=== PATIENT | male | born 1935 | race Hispanic/Latino ===

== ENCOUNTER 2021-05-05 06:45 | Inpatient (IN) | payer MEDICARE ==
--- NOTE | 2021-05-05 07:53 | Emergency Department Report ---
ED General Adult HPI - General Chief complaint: Weakness Stated complaint: I am fine PUI?: No Time Seen by Provider: 05/05/21 07:36 Source: patient, family, EMS (Verbal report received from emergency medical services. EMS documentation not available at time of chart dictation ), RN notes reviewed Mode of arrival: Stretcher Limitations: Altered Mental Status, Physical Limitation - History of Present Illness Initial comments: The patient was evaluated in the emergency department for symptoms described in the history of present illness. He/she was evaluated in the context of the global COVID-19 pandemic, which necessitated consideration that the patient might be at risk for infection with the virus that causes COVID-19. Institutional protocols and algorithms that pertain to the evaluation of patients at risk for COVID-19 are in a state of rapid change based on information released by regulatory bodies including the CDC and federal and state organizations. These policies and algorithms were followed during the patient's care in the emergency department. Please note that these policies, procedures and recommendations changed on a rapid basis. Primary CARE doctor: Dr. Sajan Grey Hematology oncology: Dr. Michael Aguiar Past medical history: DO NOT RESUSCITATE, DO NOT INTUBATE status, biliary/bile duct cancer, status post biliary drain placed at [facility], scheduled to have port placed for chemotherapy tomorrow, glaucoma, hypertension, hypothyroidism, high cholesterol, presumed BPH History obtained from EMS, and from patient's daughter, Ms. Morales Bond; [phone] The patient is an 85-year-old gentleman who was brought to the hospital by emergency medical services with a complaint of weakness and altered mental status. As per EMS, and later on family, last known well time is 9:00/930 last night. As per patient's daughter, Mr. Mace lives with another daughter, and typically sleeps in the recliner. Apparently, he slid out of his recliner, and was too weak to get up. EMS reports the patient was confused in the field, with a normal Accu-Chek. The patient himself admits to generalized weakness. He denies physical pain. He knows his name, and believes that he is at [facility]. The patient is confused, and does not describe the qualitative nature of symptoms, exacerbating factors, relieving factors or aggravating factors. He does move 4 extremities spontaneously. His daughter is present here in the emergency room, and we had a [id number] discussion and conversation. The patient was found to be febrile to 103.5, and was also hypoxic, requiring supplemental oxygen. His daughter states that he is received his COVID-19 vaccination. His daughter indicates that she and family are amenable to admission for antibiotics, and supportive care. She has signs and reiterated that he is a DO NOT RESUSCITATE, DO NOT INTUBATE as per his wishes. Currently, because of the COVID-19 pandemic, all hospitals in the [facility] area are operating at over capacity, and transfer is not feasible to [facility], secondary to the current Covid pandemic. Patient's daughter is amenable to this patient be admitted here to this hospital for supportive care and antibiotics. -: unknown - Related Data Allergies Allergy/AdvReac Type Severity Reaction Status Date / Time No Known Allergies Allergy Verified 05/05/21 08:17 ED Review of Systems ROS: Stated complaint: POSS CVA,AMS Other details as noted in HPI Comment: Unobtainable due to pts medical conditions Constitutional: fever, weakness Cardiovascular: denies: chest pain Gastrointestinal: denies: abdominal pain Neurological: confusion ED Physical Exam - General Limitations: Altered Mental Status, Physical Limitation General appearance: in no apparent distress - Head Head exam: Present: atraumatic, normocephalic - Eye Eye exam: Present: normal appearance (3 mm pupils bilaterally), EOMI, other (Status post bilateral cataract surgery. Pupils do not react to light). Absent: nystagmus - ENT ENT exam: Present: normal exam, normal orophraynx, mucous membranes moist, normal external ear exam - Neck Neck exam: Present: normal inspection, full ROM. Absent: tenderness, meningismus - Respiratory Respiratory exam: Present: respiratory distress, rales, accessory muscle use - Cardiovascular Cardiovascular Exam: Present: regular rate, normal rhythm, normal heart sounds. Absent: bradycardia, tachycardia, irregular rhythm, systolic murmur, diastolic murmur, rubs, gallop - GI/Abdominal GI/Abdominal exam: Present: soft, distended, normal bowel sounds, other (Nontender nontense ascites is noted. In the right upper quadrant there is a biliary drain noted, without redness, pus or streaking). Absent: tenderness, guarding, rebound, rigid - Rectal Rectal exam: Present: normal inspection, other (Chaperoned by nurse Goldie Serna). Absent: black stool, bloody stool, fecal impaction - Extremities Exam Extremities exam: Present: full ROM, pedal edema (4+ edema in the bilateral lower extremities), other (2+ pulses noted in the bilateral upper and lower extremities. There is no palpable cord. negative Homans sign. Muscular compartments are soft. The pelvis is stable.). Absent: normal inspection (Chronic venous stasis changes noted in the bilateral lower extremities) - Back Exam Back exam: Present: normal inspection. Absent: tenderness, CVA tenderness (R), CVA tenderness (L), paraspinal tenderness, vertebral tenderness - Neurological Exam Neurological exam: Present: altered, other (The patient is sleepy but arousable. The patient knows his name. The patient knows he is at the hospital. Moves 4 extremities spontaneously. There is no facial droop. Sensation is intact to light touch in 4 extremities.) - Psychiatric Psychiatric exam: Present: flat affect - Skin Skin exam: Present: warm, dry, intact. Absent: rash ED Course Vital Signs 05/05/21 05/05/21 05/05/21 08:00 08:01 08:15 Temperature 103.5 F H Pulse Rate 93 H 90 94 H Respiratory 37 H 36 H 33 H Rate Blood Pressure 144/55 O2 Sat by Pulse 93 95 97 Oximetry - Reevaluation(s) Reevaluation #1: 05/05/21 08:40 Differential diagnosis, including but not limited to: Bacteremia, viremia, pneumonia, ascites, biliary cancer, hepatohydrothorax, spontaneous bacterial peritonitis COVID-19 Assessment and plan: 85-year-old gentleman, with poor short-term and long-term prognosis given known history of biliary cancer, currently DO NOT RESUSCITATE, DO NOT INTUBATE, awake, altered but protecting airway, ruling in for sepsis criteria, manifest by tachypnea, altered mental status, hypoxia, and fever of 103.5. Family is amenable to diagnostic work-up noninvasively, antibiotics, and supportive care. Obtain CT scan of the brain and cervical spine, x-ray of the chest and pelvis, medicate empirically with ceftriaxone, and Decadron, obtain urine sample, we discussed with family, and admit patient to the medical service once initial diagnostics have resulted. Abdomen nontender, SBP is unlikely. Given advanced age, goals of care, advanced directives, we will likely withhold paracentesis at this time. Reevaluation #2: 05/05/21 08:43 Appreciate that this patient is ruling in for sepsis/systemic inflammatory response syndrome. However, he is demonstrating evidence of florid fluid overload, manifest by lower extremity edema, crackles, rales and hypoxia. 30 cc/kg bolus of fluid is contraindicated, and will cause deterioration in this patient's respiratory status. 05/05/21 09:35 Dr Ronit Barreto to admit to [facility] 05/05/21 09:44 05/05/21 09:54 Extensive discussion had with daughter regarding existing diagnostics and plan of care. We did specifically discuss paracentesis. She does not want to pursue paracentesis at this time, and would prefer to pursue diuretics and empiric antibiotics. She stated that she would be amenable to considering a large- volume paracentesis to improve work of breathing downstream, depending on his clinical course. I will defer to the inpatient team to further address this downstream. All of her questions were answered. ED Medical Decision Making - Lab Data Result diagrams: 05/05/21 08:17 05/05/21 08:17 Vital Signs 05/05/21 05/05/21 05/05/21 08:00 08:01 08:15 Temperature 103.5 F H Pulse Rate 93 H 90 94 H Respiratory 37 H 36 H 33 H Rate Blood Pressure 144/55 O2 Sat by Pulse 93 95 97 Oximetry Lab Results 05/05/21 05/05/21 05/05/21 Range/Units 08:17 08:17 08:17 WBC 26.0 H (4.5-11.0) K/mm3 RBC 3.44 L (3.65-5.03) M/mm3 Hgb 9.4 L (11.8-15.2) gm/dl Hct 29.4 L (35.5-45.6) % MCV 85 (84-94) fl MCH 27 L (28-32) pg MCHC 32 (32-34) % RDW 20.4 H (13.2-15.2) % Plt Count 389 (140-440) K/mm3 Seg Neutrophils % [place] Lactic Acid 1.30 (0.7-2.0) mmol/L Plasma/Serum Alcohol < 0.01 (0-0.07) % - EKG Data -: EKG Interpreted by [facility] - EKG Data 05/05/21 08:43 No prior EKGs available for comparison. EKG shows rate of 98 bpm, with a left axis deviation, and borderline left anterior fascicular block. Rhythm appears to be irregularly irregular, with multiple PVCs and PACs, left ventricular hypertrophy. Rhythm appears to be an ectopic atrial rhythm. There is motion artifact. There is an abnormal EKG. This is not a STEMI. - Radiology Data Radiology results: pending, report reviewed, image reviewed Pelvis radiograph, 2 views HISTORY: Fall, weakness COMPARISON: None FINDINGS: No acute fracture or malalignment. No focal soft tissue abnormality. IMPR ESSION: No acute process Signer Name: Aleksandar Segundo MD Signed: 05/05/2021 8:12 AM XR chest 1V ap INDICATION / CLINICAL INFORMATION: Altered Mental Status. COMPARISON: None available. FINDINGS: SUPPORT DEVICES: None. HEART /PULMONARY VASCULATURE: Cardiac silhouette is enlarged without significant pulmonary vasculature congestion. Median sternotomy changes. LUNGS / PLEURA: No significant pulmonary or pleural abnormality. No pneumothorax. ADDITIONAL FINDINGS: No significant additional findings. IMPRESSION: 1. No acute findings. Signer Name: Aleksandar Segundo MD Signed: 05/05/2021 8:19 AM Workstation Name: [id number] CT head/brain wo con INDICATION / CLINICAL INFORMATION: 85 years Male; Altered Mental Status. TECHNIQUE: Routine CT head without contrast. All CT scans at this location are performed using CT dose reduction for ALARA by means of automated exposure control. COMPARISON: None. FINDINGS: BRAIN / INTRACRANIAL CONTENTS: There appear to be mild cerebral white matter changes most consistent with mild age-appropriate microvascular angiopathy. There is mild to moderate cerebral atrophy with associated prominence of the ventricular system. There is no clear CT evidence of acute intracranial hemorrhage or significant mass effect. ORBITS: No significant abnormality of visualized orbits. SINUSES / MASTOIDS: There is mild mucosal thickening along the visualized posterior right sphenoid and inferior left maxillary sinuses. CRANIOCERVICAL JUNCTION: No significant abnormality. ADDITIONAL FINDINGS: None. IMPRESSION: 1. There is microvascular angiopathy and cerebral atrophy as described without clear CT ends of acute intracranial hemorrhage. Signer Name: Clyde Nevarez MD Signed: 05/05/2021 8:[address] cervical spine wo con INDICATION / CLINICAL INFORMATION: 85 years Male; fall confused. TECHNIQUE: Axial CT images of the cervical spine were obtained. Sagittal and coronal reformatted images were produced. All CT scans at this location are performed using CT dose reduction for ALARA by means of automated exposure control. COMPARISON: None available. FINDINGS: POST-SURGICAL CHANGES: None. ALIGNMENT: There is mild curvature of the cervical spine, convex toward the right. There is no significant spondylolisthesis. VERTEBRAE: There is mild deformity of the superior C5 vertebral body at. However, there is sclerotic margin and this finding would appear to be a chronic and likely on a degenerative basis given the anterior osteophytic formation. There is diffuse osteopenia and heterogeneous appearance of the bony structures which may be re lated to demineralization and patient's age. There is disc space narrowing with notable endplate changes at C2-3. There is no clear CT evidence of acute fracture of the cervical spine. INTRAVERTEBRAL DISCS: The left facet and uncovertebral joint hypertrophy at C4-5 results in moderate left foraminal narrowing. The disc bulge effaces the ventral subarachnoid space at. There is marked left and moderate to marked right foraminal narrowing at C5-6 at. There appears be moderate foraminal narrowing bilaterally at C6-7. PARASPINAL SOFT TISSUES: No prevertebral soft tissue fluid collections are identified. There is notable atherosclerotic calcification involving carotid bifurcations bilaterally. There is mild opacification along the posterior right sphenoid sinus. ADDITIONAL FINDINGS: None. IMPRESSION: 1. There are multilevel degenerative the changes involving cervical spine as detailed above. 2. There is diffuse osteopenia without clear CT evidence of acute fracture of the cervical spine. Signer Name: Clyde Nevarez MD Signed: 05/05/2021 8:33 AM Workstation Name: [id number] Critical Care Time: Yes Critical care time in (mins) excluding proc time.: 45 Critical care attestation.: If time is entered above; I have spent that time in minutes in the direct care of this critically ill patient, excluding procedure time. Critical Care Time: Critical care time includes multiple bedside reevaluations, interpretation of laboratory studies, radiology studies, and multiple discussions with family to discuss goals of care, advanced directives, and coordination with internal medicine team to arrange admission. This does not include procedure time. ED Disposition Clinical Impression: Do not resuscitate status, Acute febrile illness, Acute encephalopathy, Liver cancer, SIRS (systemic inflammatory response syndrome), Fall, Debility Disposition: 09 ADMITTED INPATIENT Is pt being admited?: No Does the pt Need Aspirin: No Condition: Poor Referrals: PRIMARY CARE, [Primary Care Provider] - 3-5 Days
[2021-05-05 08:38] LABS: Hematocrit 29.4 % (35.5-45.6); Hemoglobin 9.4 gm/dl (11.8-15.2); Mean Corpuscular HGB Conc 32 % (32-34); Mean Corpuscular Volume 85 fl (84-94); Platelet Count 389 K/mm3 (140-440); Red Blood Count 3.44 M/mm3 (3.65-5.03)
[2021-05-05 08:39] LABS: Red Cell Distribution Width 20.4 % (13.2-15.2)
[2021-05-05 08:49] LABS: INR 1.09 (0.87-1.13)
[2021-05-05 08:50] LABS: Alanine Aminotransferase 63 units/L (7-56); BUN/Creatinine Ratio 29; Blood Urea Nitrogen 23 mg/dL (9-20); Calcium 9.2 mg/dL (8.4-10.2); Hemolysis Index 0; Partial Thromboplastin Time 38.7 Sec. (24.2-36.6)
[2021-05-05] MEDS ORDERED: cefTRIAXone/NS 2 GM/100 ML 2 GM/100 ML BAG IV ONE (09:00)
[2021-05-05] MEDS ORDERED: dexAMETHasone 4 MG/ML VIAL IV NR (09:00)
--- NOTE | 2021-05-05 09:16 | XRay Report ---
Pelvis radiograph, 2 views HISTORY: Fall, weakness COMPARISON: None FINDINGS: No acute fracture or malalignment. No focal soft tissue abnormality. IMPRESSION: No acute process Signer Name: Aleksandar Segundo MD Signed: 05/05/2021 9:12 AM Workstation Name: [id number]
--- NOTE | 2021-05-05 09:23 | XRay Report ---
XR chest 1V ap INDICATION / CLINICAL INFORMATION: Altered Mental Status. COMPARISON: None available. FINDINGS: SUPPORT DEVICES: None. HEART /PULMONARY VASCULATURE: Cardiac silhouette is enlarged without significant pulmonary vasculatur e congestion. Median sternotomy changes. LUNGS / PLEURA: No significant pulmonary or pleural abnormality. No pneumothorax. ADDITIONAL FINDINGS: No significant additional findings. IMPRESSION: 1. No acute findings. Signer Name: Aleksandar Segundo MD Signed: 05/05/2021 9:19 AM Workstation Name: [id number]
[2021-05-05] MEDS ORDERED: FUROSEMIDE 40 MG/4 ML INJ IV ONE (09:35)
--- NOTE | 2021-05-05 09:38 | Cat Scan Report ---
CT cervical spine wo con INDICATION / CLINICAL INFORMATION: 85 years Male; fall confused. TECHNIQUE: Axial CT images of the cervical spine were obtained. Sagittal and coronal reformatted images were pr oduced. All CT scans at this location are performed using CT dose reduction for ALARA by means of aut omated exposure control. COMPARISON: None available. FINDINGS: POST-SURGICAL CHANGES: None. ALIGNMENT: There is mild curvature of the cervical spine, convex toward the right. There is no signif icant spondylolisthesis. VERTEBRAE: There is mild deformity of the superior C5 vertebral body at. However, there is sclerotic margin and this finding would appear to be a chronic and likely on a degenerative basis given the ant erior osteophytic formation. There is diffuse osteopenia and heterogeneous appearance of the bony structures which may be related to demineralization and patient's age. There is disc space narrowing with notable endplate changes at C2-3. There is no clear CT evidence of acute fracture of the cervical spine. INTRAVERTEBRAL DISCS: The left facet and uncovertebral joint hypertrophy at C4-5 results in moderate left foraminal narrowing. The disc bulge effaces the ventral subarachnoid space at. There is marked l eft and moderate to marked right foraminal narrowing at C5-6 at. There appears be moderate foraminal narrowing bilaterally at C6-7. PARASPINAL SOFT TISSUES: No prevertebral soft tissue fluid collections are identified. There is notab le atherosclerotic calcification involving carotid bifurcations bilaterally. There is mild opacificat ion along the posterior right sphenoid sinus. ADDITIONAL FINDINGS: None. IMPRESSION: 1. There are multilevel degenerative the changes involving cervical spine as detailed above. 2. There is diffuse osteopenia without clear CT evidence of acute fracture of the cervical spine. Signer Name: Clyde Nevarez MD Signed: 05/05/2021 9:33 AM Workstation Name: [id number]
--- NOTE | 2021-05-05 09:40 | Cat Scan Report ---
CT head/brain wo con INDICATION / CLINICAL INFORMATION: 85 years Male; Altered Mental Status. TECHNIQUE: Routine CT head without contrast. All CT scans at this location are performed using CT dos e reduction for ALARA by means of automated exposure control. COMPARISON: None. FINDINGS: BRAIN / INTRACRANIAL CONTENTS: There appear to be mild cerebral white matter changes most consistent with mild age-appropriate microvascular angiopathy. There is mild to moderate cerebral atrophy with a ssociated prominence of the ventricular system. There is no clear CT evidence of acute intracranial h emorrhage or significant mass effect. ORBITS: No significant abnormality of visualized orbits. SINUSES / MASTOIDS: There is mild mucosal thickening along the visualized posterior right sphenoid an d inferior left maxillary sinuses. CRANIOCERVICAL JUNCTION: No significant abnormality. ADDITIONAL FINDINGS: None. IMPRESSION: 1. There is microvascular angiopathy and cerebral atrophy as described without clear CT ends of acute intracranial hemorrhage. Signer Name: Clyde Nevarez MD Signed: 05/05/2021 9:36 AM Workstation Name: [id number]
[2021-05-05 10:43] LABS: Total Cells Counted 100
[2021-05-05 10:47] LABS: Hypochromasia Few; Target Cells Few; Tear Drop Cells Few
[2021-05-05 10:48] LABS: Platelet Estimate Consistent w Auto
[2021-05-05] MEDS ORDERED: ACETAMINOPHEN 325 MG TAB PO PRN ×2 (11:10→11:15)
[2021-05-05] MEDS ORDERED: HYDROmorphone 1 MG/1 ML INJ IV PRN (11:15)
--- NOTE | 2021-05-05 11:27 | History and Physical Report ---
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 patient was noted to be febrile with a temperature of 103.5 and with marked leukocytosis and is being admitted for suspected sepsis. He is awake and alert and oriented to his name and age otherwise he is a poor historian. He says he is weak but denies any pain. He denies chest pain or shortness of breath. He is being admitted for suspected sepsis. Patient is DNR/DNI. He is vaccinated against COVID-19 Past History Past Medical History: cancer (Biliary duct cancer), hypertension, hyperlipidemia, hypothyroidism, other (BPH) Past Surgical History: Other (Unable to obtain at this time) Social history: no significant social history Family history: other (Unable to obtain as the patient is confused, not pertinent to present admission) Medications and Allergies Allergies Allergy/AdvReac Type Severity Reaction Status Date / Time No Known Allergies Allergy Verified 05/05/21 08:17 Active Meds: Active Medications Acetaminophen (Acetaminophen 325 Mg Tab) 650 mg PO Q4H PRN PRN Reason: Pain MILD(1-3)/Fever >100.5/DAUGHERTY Hydromorphone HCl (Hydromorphone 1 Mg/1 Ml Inj) 0.25 mg IV Q4H PRN PRN Reason: Pain, Moderate (4-6) Ceftriaxone Sodium (Rocephin/Ns 2 Gm/100 Ml) 2 gm in 100 mls @ 200 mls/hr IV Q24H LUDMILA; Protocol Ondansetron HCl (Ondansetron 4 Mg/2 Ml Inj) 4 mg IV Q8H PRN PRN Reason: Nausea And Vomiting Sodium Chloride (Sodium Chloride 0.9% 10 Ml Flush Syringe) 10 ml IV BID LUDMILA Sodium Chloride (Sodium Chloride 0.9% 10 Ml Flush Syringe) 10 ml IV PRN PRN PRN Reason: LINE FLUSH Review of Systems Constitutional: weakness, no weight loss, no chronic headaches Ears, nose, mouth and throat: no ear pain, no sore throat Cardiovascular: no chest pain, no syncope, no shortness of breath Respiratory: no cough, no congestion Gastrointestinal: constipation, no abdominal pain, no nausea, no vomiting, no me mari Genitourinary Male: no dysuria, no hematuria, no flank pain Musculoskeletal: no neck pain Neurological: no head injury, no headaches Psychiatric: confusion, irritability Exam - Constitutional Vitals: Temp Pulse Resp BP Pulse Ox 103.5 F H 78 25 H 123/56 97 05/05/21 08:00 05/05/21 09:31 05/05/21 09:31 05/05/21 09:31 05/05/21 09:31 General appearance: Present: no acute distress, well-nourished - EENT Eyes: Present: PERRL, EOM intact ENT: hearing intact, clear oral mucosa - Neck Neck: Present: supple, normal ROM. Absent: masses or JVD - Respiratory Respiratory effort: normal Respiratory: bilateral: CTA, diminished, negative: rales, rhonchi - Cardiovascular Rhythm: regular - Extremities Extremity abnormal: edema (Bilateral lower extremity edema with stasis skin changes,) - Abdominal General gastrointestinal: Present: soft, distended, normal bowel sounds Male genitourinary: Present: deferred - Rectal Rectal Exam: deferred - Integumentary Integumentary: Present: clear - Musculoskeletal Musculoskeletal: generalized weakness - Neurologic Neurologic: moves all extremities HEART Score - HEART Score Troponin: Troponin T 0.024 ng/mL (0.00-0.029) 05/05/21 08:17 Results - Labs CBC & Chem 7: 05/05/21 08:17 05/05/21 08:17 Labs: Abnormal lab results 05/05/21 05/05/21 05/05/21 Range/Units 08:17 08:17 08:17 WBC 26.0 H (4.5-11.0) K/mm3 RBC 3.44 L (3.65-5.03) M/mm3 Hgb 9.4 L (11.8-15.2) gm/dl Hct 29.4 L (35.5-45.6) % MCH 27 L (28-32) pg RDW 20.4 H (13.2-15.2) % Seg Neuts % (Manual) 98.0 H (40.0-70.0) % Seg Neutrophils # Man 25.5 H (1.8-7.7) K/mm3 Lymphocytes # (Manual) 0.0 L (1.2-5.4) K/mm3 APTT 38.7 H (24.2-36.6) Sec. BUN 23 H (9-20) mg/dL Glucose 142 H (75-100) mg/dL Total Bilirubin 2.60 H (0.1-1.2) mg/dL AST 66 H (5-40) units/L ALT 63 H (7-56) units/L Alkaline Phosphatase 490 H (35-129) units/L NT-Pro-B Natriuret Pep (0-900) pg/mL Albumin 3.0 L (3.9-5) g/dL Salicylates (2.8-20.0) mg/dL Acetaminophen (10.0-30.0) ug/mL 05/05/21 05/05/21 05/05/21 Range/Units 08:17 08:17 08:17 WBC (4.5-11.0) K/mm3 RBC (3.65-5.03) M/mm3 Hgb (11.8-15.2) gm/dl Hct (35.5-45.6) % MCH (28-32) pg RDW (13.2-15.2) % Seg Neuts % (Manual) (40.0-70.0) % Seg Neutrophils # Man (1.8-7.7) K/mm3 Lymphocytes # (Manual) (1.2-5.4) K/mm3 APTT (24.2-36.6) Sec. BUN (9-20) mg/dL Glucose (75-100) mg/dL Total Bilirubin (0.1-1.2) mg/dL AST (5-40) units/L ALT (7-56) units/L Alkaline Phosphatase (35-129) units/L NT-Pro-B Natriuret Pep 3157 H (0-900) pg/mL Albumin (3.9-5) g/dL Salicylates < 0.3 L (2.8-20.0) mg/dL Acetaminophen 5.0 L (10.0-30.0) ug/mL Assessment and Plan - Patient Problems (1) Sepsis Current Visit: Yes Status: Acute Qualifiers: Sepsis type: sepsis due to unspecified organism Sepsis acute organ dysfunction status: without acute organ dysfunction Qualified Code(s): A41.9 - Sepsis, unspecified organism Plan to address problem: Started on sepsis pathway Blood cultures obtained Rocephin 2 g IV daily empiric ID consult Follow-up on blood culture results (2) Hypothyroidism Current Visit: Yes Status: Chronic Qualifiers: Hypothyroidism type: acquired Qualified Code(s): E03.9 - Hypothyroidism, unspecified Plan to address problem: Patient's home medication list is not available Discussed with RN in the ED (3) History of hypertension Current Visit: Yes Status: Chronic Plan to address problem: His blood pressure is in the normal range Home medication list is not available at this time (4) Hyperglycemia Current Visit: Yes Status: Chronic Plan to address problem: check A1C Initiate insulin sliding scale coverage and Accu-Cheks before meals and at bedtime (5) Cancer of biliary duct or passage Current Visit: Yes Status: Acute Plan to address problem: History of biliary drain placement Outpatient follow-up with his oncologist He is DNR/DNI Patient's family is against any paracentesis at this time (6) Acute encephalopathy Current Visit: Yes Status: Acute Plan to address problem: Likely secondary to sepsis Lactic acid levels ordered Positive sepsis indicators are high-grade fever, tachycardia, altered mentation, leukocytosis (7) Acute febrile illness Current Visit: Yes Status: Acute Plan to address problem: Most likely secondary to suspected sepsis Rule out viral syndrome Covid test ordered Acetaminophen as needed Await blood culture results (8) Do not resuscitate status Current Visit: Yes Status: Acute
[2021-05-05] MEDS ORDERED: ONDANSETRON 4 MG/2 ML INJ IV PRN (11:30)
[2021-05-05] MEDS: HYDROmorphone 1 MG/1 ML INJ IV PRN (19:58)
[2021-05-06] MEDS: HYDROmorphone 1 MG/1 ML INJ IV PRN ×2 (00:20→04:48)
[2021-05-06 06:14] LABS: Hematocrit 28.4 % (35.5-45.6); Hemoglobin 9.1 gm/dl (11.8-15.2); Mean Corpuscular HGB Conc 32 % (32-34); Mean Corpuscular Volume 85 fl (84-94); Platelet Count 301 K/mm3 (140-440); Red Blood Count 3.35 M/mm3 (3.65-5.03)
[2021-05-06 06:15] LABS: Red Cell Distribution Width 21.1 % (13.2-15.2)
[2021-05-06 06:22] LABS: Alanine Aminotransferase 58 units/L (7-56); Albumin 2.6 g/dL (3.9-5); BUN/Creatinine Ratio 29; Blood Urea Nitrogen 23 mg/dL (9-20); Calcium 8.2 mg/dL (8.4-10.2); Hemolysis Index 0
[2021-05-06] MEDS: ACETAMINOPHEN 325 MG TAB PO PRN ×2 (09:16→23:44)
[2021-05-06] MEDS: cefTRIAXone/NS 2 GM/100 ML 2 GM/100 ML BAG IV SCH (09:17)
--- NOTE | 2021-05-06 11:05 | Electrocardiograph Report ---
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 Multiple premature complexes, vent & supraven LVH with secondary repolarization abnormality No previous ECG available for comparison Electronically Signed On 05-06-2021 11:05:03 EDT by Alejandro Mtz
--- NOTE | 2021-05-06 12:11 | Progress Note ---
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 patient was noted to be febrile with a temperature of 103.5 and with marked leukocytosis and is being admitted for suspected sepsis. He is awake and alert and oriented to his name and age otherwise he is a poor historian. He says he is weak but denies any pain. He denies chest pain or shortness of breath. He is being admitted for suspected sepsis. Patient is DNR/DNI. He is vaccinated against COVID-19 05/06: Initial head CT some remarkable. There is enough doubt to fully evaluate CVA. Will obtain neurology consult. Also with recent diagnosis of CVA it may be imperative to get an MRI of the brain to rule out any metastatic spread. Aspiration precautions discussed with nursing staff. Otherwise continue current management for sepsis as noted below. (1) Sepsis Current Visit: Yes Status: Acute Qualifiers: Sepsis type: sepsis due to unspecified organism Sepsis acute organ dysfunction status: without acute organ dysfunction Qualified Code(s): A41.9 - Sepsis, unspecified organism Plan to address problem: Started on sepsis pathway Blood cultures obtained Rocephin 2 g IV daily empiric ID consult Follow-up on blood culture results (2) Hypothyroidism Current Visit: Yes Status: Chronic Qualifiers: Hypothyroidism type: acquired Qualified Code(s): E03.9 - Hypothyroidism, unspecified Plan to address problem: Patient's home medication list is not available Discussed with RN in the ED (3) History of hypertension Current Visit: Yes Status: Chronic Plan to address problem: His blood pressure is in the normal range Home medication list is not available at this time (4) Hyperglycemia Current Visit: Yes Status: Chronic Plan to address problem: check A1C Initiate insulin sliding scale coverage and Accu-Cheks before meals and at bedtime (5) Cancer of biliary duct or passage Current Visit: Yes Status: Acute Plan to address problem: History of biliary drain placement Outpatient follow-up with his oncologist He is DNR/DNI Patient's family is against any paracentesis at this time (6) Acute encephalopathy Current Visit: Yes Status: Acute Plan to address problem: Likely secondary to sepsis Lactic acid levels ordered Positive sepsis indicators are high-grade fever, tachycardia, altered mentation, leukocytosis (7) Acute febrile illness Current Visit: Yes Status: Acute Plan to address problem: Most likely secondary to suspected sepsis Rule out viral syndrome Covid test ordered Acetaminophen as needed Await blood culture results (8) Do not resuscitate status Current Visit: Yes Status: Acute History Interval history: Patient seen and examined this morning remains on nasal cannula. A bit lethargic falling asleep during our conversation. Also tells me that his speech issue started about 6 weeks ago. Hospitalist Physical - Physical exam Narrative exam: General appearance: Present: no acute distress, well-nourished, LETHARGIC - EENT Eyes: Present: PERRL, EOM intact ENT: hearing intact, clear oral mucosa - Neck Neck: Present: supple, normal ROM. Absent: masses or JVD - Respiratory Respiratory effort: normal Respiratory: bilateral: CTA, diminished, negative: rales, rhonchi - Cardiovascular Rhythm: regular - Extremities Extremity abnormal: edema (Bilateral lower extremity edema with stasis skin changes,) - Abdominal General gastrointestinal: Present: soft, distended, normal bowel sounds Male genitourinary: Present: deferred - Rectal Rectal Exam: deferred - Integumentary Integumentary: Present: clear - Musculoskeletal Musculoskeletal: generalized weakness - Neurologic Neurologic: moves all extremities - Constitutional Vitals: Temp Pulse Resp BP Pulse Ox 101.3 F H 100 H 33 H 129/61 93 05/06/21 08:00 05/06/21 08:01 05/06/21 08:01 05/06/21 08:01 05/06/21 08:01 General appearance: Present: no acute distress, well-nourished HEART Score - HEART Score Troponin: Troponin T 0.024 ng/mL (0.00-0.029) 05/05/21 08:17 Results - Labs CBC & Chem 7: 05/06/21 05:48 05/06/21 05:48 Labs: Laboratory Last Values WBC 25.2 K/mm3 (4.5-11.0) H 05/06/21 05:48 RBC 3.35 M/mm3 (3.65-5.03) L 05/06/21 05:48 Hgb 9.1 gm/dl (11.8-15.2) L 05/06/21 05:48 Hct 28.4 % (35.5-45.6) L 05/06/21 05:48 MCV 85 fl (84-94) 05/06/21 05:48 MCH 27 pg (28-32) L 05/06/21 05:48 MCHC 32 % (32-34) 05/06/21 05:48 RDW 21.1 % (13.2-15.2) H 05/06/21 05:48 Plt Count 301 K/mm3 (140-440) 05/06/21 05:48 Add Manual Diff Complete 05/05/21 08:17 Total Counted 100 05/05/21 08:17 Seg Neutrophils % Manager Of Human Resources 05/05/21 08:17 Seg Neuts % (Manual) 98.0 % (40.0-70.0) H 05/05/21 08:17 Monocytes % (Manual) 2.0 % (0.0-7.3) 05/05/21 08:17 Nucleated RBC % Not Reportable 05/05/21 08:17 Seg Neutrophils # Man 25.5 K/mm3 (1.8-7.7) H 05/05/21 08:17 Band Neutrophils # 0.0 K/mm3 05/05/21 08:17 Lymphocytes # (Manual) 0.0 K/mm3 (1.2-5.4) L 05/05/21 08:17 Abs React Lymphs (Man) 0.0 K/mm3 05/05/21 08:17 Monocytes # (Manual) 0.5 K/mm3 (0.0-0.8) 05/05/21 08:17 Eosinophils # (Manual) 0.0 K/mm3 (0.0-0.4) 05/05/21 08:17 Basophils # (Manual) 0.0 K/mm3 (0.0-0.1) 05/05/21 08:17 Metamyelocytes # 0.0 K/mm3 05/05/21 08:17 Myelocytes # 0.0 K/mm3 05/05/21 08:17 Promyelocytes # 0.0 K/mm3 05/05/21 08:17 Blast Cells # 0.0 K/mm3 05/05/21 08:17 WBC Morphology Not Reportable 05/05/21 08:17 WBC Morphology TNR 05/05/21 08:17 Hypersegmented Neuts Not Reportable 05/05/21 08:17 Hyposegmented Neuts Not Reportable 05/05/21 08:17 Hypogranular Neuts Not Reportable 05/05/21 08:17 Smudge Cells Not Reportable 05/05/21 08:17 Toxic Granulation Not Reportable 05/05/21 08:17 Toxic Vacuolation Not Reportable 05/05/21 08:17 Dohle Bodies Not Reportable 05/05/21 08:17 Pelger-Huet Anomaly Not Reportable 05/05/21 08:17 Rayn Rods Not Reportable 05/05/21 08:17 Platelet Estimate Consistent w auto 05/05/21 08:17 Clumped Platelets Not Reportable 05/05/21 08:17 Plt Clumps, EDTA Not Reportable 05/05/21 08:17 Large Platelets Not Reportable 05/05/21 08:17 Giant Platelets Not Reportable 05/05/21 08:17 Platelet Satelliting Not Reportable 05/05/21 08:17 Plt Morphology Comment Not Reportable 05/05/21 08:17 RBC Morphology Not Reportable 05/05/21 08:17 Dimorphic RBCs Not Reportable 05/05/21 08:17 Polychromasia Not Reportable 05/05/21 08:17 Hypochromasia Few 05/05/21 08:17 Poikilocytosis Not Reportable 05/05/21 08:17 Anisocytosis Not Reportable 05/05/21 08:17 Microcytosis Not Reportable 05/05/21 08:17 Macrocytosis Not Reportable 05/05/21 08:17 Spherocytes Not Reportable 05/05/21 08:17 Pappenheimer Bodies Not Reportable 05/05/21 08:17 Sickle Cells Not Reportable 05/05/21 08:17 Target Cells Few 05/05/21 08:17 Tear Drop Cells Few 05/05/21 08:17 Ovalocytes Not Reportable 05/05/21 08:17 Helmet Cells Not Reportable 05/05/21 08:17 [place] Bodies Not Reportable 05/05/21 08:17 Bryce Rings Not Reportable 05/05/21 08:17 Mendoza Cells Not Reportable 05/05/21 08:17 Bite Cells Not Reportable 05/05/21 08:17 Crenated Cell Not Reportable 05/05/21 08:17 Elliptocytes Not Reportable 05/05/21 08:17 Acanthocytes (Spur) Not Reportable 05/05/21 08:17 Rouleaux Not Reportable 05/05/21 08:17 Hemoglobin C Crystals Not Reportable 05/05/21 08:17 Schistocytes Not Reportable 05/05/21 08:17 Malaria parasites Not Reportable 05/05/21 08:17 Stephen Bodies Not Reportable 05/05/21 08:17 Hem Pathologist Commnt No 05/05/21 08:17 PT 14.7 Sec. (12.2-14.9) 05/05/21 08:17 INR 1.09 (0.87-1.13) 05/05/21 08:17 APTT 38.7 Sec. (24.2-36.6) H 05/05/21 08:17 Sodium 140 mmol/L (137-145) 05/06/21 05:48 Potassium 3.8 mmol/L (3.6-5.0) 05/06/21 05:48 Chloride 101.9 mmol/L (98-107) 05/06/21 05:48 Carbon Dioxide 30 mmol/L (22-30) 05/06/21 05:48 Anion Gap 12 mmol/L 05/06/21 05:48 BUN 23 mg/dL (9-20) H 05/06/21 05:48 Creatinine 0.8 mg/dL (0.8-1.3) 05/06/21 05:48 Estimated GFR > 60 ml/min 05/06/21 05:48 BUN/Creatinine Ratio 29 % 05/06/21 05:48 Glucose 149 mg/dL (75-100) H 05/06/21 05:48 Lactic Acid 1.30 mmol/L (0.7-2.0) 05/05/21 08:17 Calcium 8.2 mg/dL (8.4-10.2) L 05/06/21 05:48 Magnesium 1.80 mg/dL (1.7-2.3) 05/05/21 08:17 Total Bilirubin 2.30 mg/dL (0.1-1.2) H 05/06/21 05:48 AST 58 units/L (5-40) H 05/06/21 05:48 ALT 58 units/L (7-56) H 05/06/21 05:48 Alkaline Phosphatase 459 units/L (35-129) H 05/06/21 05:48 Ammonia 27.0 umol/L (25-60) 05/05/21 08:17 Total Creatine Kinase 99 units/L (55-170) 05/05/21 08:17 Total Creatine Kinase 99 units/L (55-170) 05/05/21 08:17 Troponin T 0.024 ng/mL (0.00-0.029) 05/05/21 08:17 NT-Pro-B Natriuret Pep 3157 pg/mL (0-900) H 05/05/21 08:17 Total Protein 5.8 g/dL (6.3-8.2) L 05/06/21 05:48 Albumin 2.6 g/dL (3.9-5) L 05/06/21 05:48 Albumin/Globulin Ratio 0.8 % 05/06/21 05:48 TSH 2.310 mlU/mL (0.270-4.200) 05/05/21 08:17 Salicylates < 0.3 mg/dL (2.8-20.0) L 05/05/21 08:17 Acetaminophen 5.0 ug/mL (10.0-30.0) L 05/05/21 08:17 Plasma/Serum Alcohol < 0.01 % (0-0.07) 05/05/21 08:17 Blood Type AB POSITIVE 05/05/21 08:11 Antibody Screen Negative 05/05/21 08:11 Microbiology: Microbiology 05/05/21 08:17 Peripheral/Venous Blood Culture - Preliminary 05/05/21 08:17 Peripheral/Venous Blood Culture - Preliminary Active Medications - Current Medications Current Medications: Generic Name Dose Route Start Last Admin Trade Name Freq PRN Reason Stop Dose Admin Acetaminophen 650 mg 05/05/21 11:30 05/06/21 09:16 Acetaminophen 325 Mg Tab PO 650 mg Q4H PRN Administration Pain MILD(1-3)/Fever >100.5/DAUGHERTY Hydromorphone HCl 0.25 mg 05/05/21 11:30 05/06/21 04:48 Hydromorphone 1 Mg/1 Ml Inj IV 0.25 mg Q4H PRN Administration Pain, Moderate (4-6) Ceftriaxone Sodium 2 gm in 100 mls @ 200 mls/hr 05/06/21 09:00 05/06/21 09:17 Rocephin/Ns 2 Gm/100 Ml IV 200 mls/hr Q24H LUDMILA Administration Protocol Ondansetron HCl 4 mg 05/05/21 11:30 Ondansetron 4 Mg/2 Ml Inj IV Q8H PRN Nausea And Vomiting Sodium Chloride 10 ml 05/05/21 12:00 05/05/21 22:12 Sodium Chloride 0.9% 10 Ml Flush Syringe IV 10 ml BID LUDMILA Administration Sodium Chloride 10 ml 05/05/21 11:30 Sodium Chloride 0.9% 10 Ml Flush Syringe IV PRN PRN LINE FLUSH
--- NOTE | 2021-05-06 16:33 | Consultation ---
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 Noted to be febrile and septic. Patient is DNR/DNI. He is status post COVID-19 vaccination. Due to sepsis, infectious diseases was consulted. T-max was 103 F. Labs have revealed significant leukocytosis. Patient is a poor historian. Chest x-ray without pneumonia. Does complain of some urinary burning. No UA collected. Discussed with RN in ED. Review of Systems: Limited due to poor historian Past History Past Medical History: cancer (Biliary duct cancer), hypertension, hyperlipid emia, hypothyroidism, other (BPH) Past Surgical History: Other (Unable to obtain at this time) Social history: no significant social history Family history: other (Unable to obtain as the patient is confused, not pertinent to present admission) Medications and Allergies Allergies Allergy/AdvReac Type Severity Reaction Status Date / Time No Known Allergies Allergy Verified 05/05/21 08:17 Home Medications Medication Instructions Recorded Confirmed Last Taken Type Aspirin [Vazalore] 81 mg PO QDAY 05/05/21 05/05/21 Unknown History Chlorpheniramine (Nf) 8 mg PO Q12H 05/05/21 05/05/21 Unknown History [Chlor-Trimeton (Nf)] Enalapril Maleate [Vasotec] 20 mg PO BID 05/05/21 05/05/21 Unknown History Levothyroxine Sodium 200 mcg PO DAILY 05/05/21 05/05/21 Unknown History [Levothyroxine] Pravastatin [Pravachol] 20 mg PO QHS 05/05/21 05/05/21 Unknown History Tamsulosin [Flomax] 0.4 mg PO QDAY 05/05/21 05/05/21 Unknown History amLODIPine [Norvasc] 5 mg PO DAILY 05/05/21 05/05/21 Unknown History Active Meds: Active Medications Acetaminophen (Acetaminophen 325 Mg Tab) 650 mg PO Q4H PRN PRN Reason: Pain MILD(1-3)/Fever >100.5/DAUGHERTY Last Admin: 05/06/21 09:16 Dose: 650 mg Documented by: Amlodipine Besylate (Amlodipine 5 Mg Tab) 5 mg PO DAILY [facility] Aspirin (Aspirin Ec 81 Mg Tab) 81 mg PO QDAY [facility] Hydromorphone HCl (Hydromorphone 1 Mg/1 Ml Inj) 0.25 mg IV Q4H PRN PRN Reason: Pain, Moderate (4-6) Last Admin: 05/06/21 04:48 Dose: 0.25 mg Documented by: Ceftriaxone Sodium (Rocephin/Ns 2 Gm/100 Ml) 2 gm in 100 mls @ 200 mls/hr IV Q24H [facility]; Protocol Last Admin: 05/06/21 09:17 Dose: 200 mls/hr Documented by: Metronidazole (Flagyl 500 Mg/100 Ml) 500 mg in 100 mls @ 100 mls/hr IV Q8H [facility]; Protocol Levothyroxine Sodium (Levothyroxine 100 Mcg Tab) 200 mcg PO DAILY@0600 [facility] Lisinopril (Lisinopril 20 Mg Tab) 20 mg PO BID [facility] Miscellaneous Medication (Chlorpheniramine) 8 mg PO Q12H [facility] Ondansetron HCl (Ondansetron 4 Mg/2 Ml Inj) 4 mg IV Q8H PRN PRN Reason: Nausea And Vomiting Pravastatin Sodium (Pravastatin 20 Mg Tab) 20 mg PO QHS [facility] Sodium Chloride (Sodium Chloride 0.9% 10 Ml Flush Syringe) 10 ml IV BID [facility] Last Admin: 05/05/21 22:12 Dose: 10 ml Documented by: Sodium Chloride (Sodium Chloride 0.9% 10 Ml Flush Syringe) 10 ml IV PRN PRN PRN Reason: LINE FLUSH Tamsulosin HCl (Tamsulosin 0.4 Mg Cap) 0.4 mg PO QDAY [facility] Physical Examination - Physical Exam Narrative exam: Physical Exam: Constitutional: Awake, alert Head, Ears, Nose: Normocephalic, atraumatic. External ears, nose normal Eyes: Conjunctivae/corneas clear. No icterus. No ptosis. Neck: Supple, no meningeal signs Cardiovascular: S1, S2 + Respiratory: Good air entry, clear to auscultation bilaterally GI: Soft, non-tender; bowel sounds normal. No peritoneal signs Musculoskeletal: No pedal edema, no cyanosis. Skin: No rash or abscess Hem/Lymphatic: No palpable cervical or supraclavicular nodes. No lymphangitis Psych: no agitation Neurological: Awake, alert - Constitutional Vitals: Vital Signs Temp Pulse Resp BP Pulse Ox 101.3 F H 100 H 33 H 129/61 93 05/06/21 08:00 05/06/21 08:01 05/06/21 08:01 05/06/21 08:01 05/06/21 08:01 Temperature -Last 24 Hours Temperature 101.3 F Results - Labs CBC & Chem 7: 05/06/21 05:48 05/06/21 05:48 Labs: Abnormal lab results 05/06/21 05/06/21 Range/Units 05:48 05:48 WBC 25.2 H (4.5-11.0) K/mm3 RBC 3.35 L (3.65-5.03) M/mm3 Hgb 9.1 L (11.8-15.2) gm/dl Hct 28.4 L (35.5-45.6) % MCH 27 L (28-32) pg RDW 21.1 H (13.2-15.2) % BUN 23 H (9-20) mg/dL Glucose 149 H (75-100) mg/dL Calcium 8.2 L (8.4-10.2) mg/dL Total Bilirubin 2.30 H (0.1-1.2) mg/dL AST 58 H (5-40) units/L ALT 58 H (7-56) units/L Alkaline Phosphatase 459 H (35-129) units/L Total Protein 5.8 L (6.3-8.2) g/dL Albumin 2.6 L (3.9-5) g/dL - Imaging and Cardiology Chest x-ray: report reviewed, image reviewed (no pneumonia) Assessment and Plan Cultures: 05/05/2021 blood culture: GNR 05/05/2021 urine culture: No significant growth A/P: 85-year-old male with 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 No UA done. Does complain of some urinary burning. #History of cholangiocarcinoma: Status post biliary drain placement. He is D NR/DNI, follows with oncology as outpatient. #Acute encephalopathy: Likely from sepsis. Recs: Empiric Ceftriaxone, Flagyl CT abdomen and pelvis ordered Overall guarded prognosis d/W ED RN to send EVELYN Lau MD, FACP [facility] O: [phone] F: [phone]
--- NOTE | 2021-05-06 17:33 | Magnetic Resonance Report ---
MR brain wo con INDICATION / CLINICAL INFORMATION: METASTATIC DISEASE. Encephalopathy. TECHNIQUE: Multiplanar, multisequence MR images of the brain were obtained. COMPARISON: None available. FINDINGS: INTRACRANIAL: There are a few view small bilateral foci of restricted diffusion seen in the bilateral frontal white matter. On gradient imaging there is a focus of susceptibility measuring 4 mm along th e left M2 MCA (image 14 of series 6). This is not well seen on any other sequence. Small focus of hem osiderin deposition seen along the right precentral gyrus. No acute hemorrhage. Ventricular caliber i s normal. No extra-axial collection. No mass. No herniation. Major intracranial vascular flow voids are preserved. ORBITS: No significant abnormality of visualized orbits. SINUSES / MASTOIDS: No significant abnormality of visualized sinuses and mastoid air cells. ADDITIONAL FINDINGS: None. IMPRESSION: 1. Small bilateral lacunar infarctions involving the bifrontal white matter, likely central embolic e tiology given the bilateral distribution and differing vascular territories. 2. 4 mm region of susceptibility seen along the left M2 MCA which could represent an aneurysm but not seen on any other sequence. Recommend CTA head for further evaluation. Signer Name: Niles Ngo MD Signed: 05/06/2021 5:29 PM Workstation Name: [id number]
[2021-05-06 18:43] LABS: Bilirubin,Urine NEG (Negative); Blood,Urine NEG (Negative); Color,Urine Amber (Yellow); Mucus,Urine 2+ /HPF
[2021-05-06] MEDS: metroNIDAZOLE/NS 500 MG/100 ML 500 MG/100 ML BAG IV SCH (19:23)
[2021-05-06] MEDS: amLODIPine 5 MG TAB PO SCH (19:33)
--- NOTE | 2021-05-06 19:40 | Cat Scan Report ---
CT ABDOMEN AND PELVIS WITH CONTRAST INDICATION / CLINICAL INFORMATION: sepsis, bacteremia, elevated LFTs, [id number] 100ml. TECHNIQUE: Axial CT images were obtained through the abdomen and pelvis after IV contrast. All CT sc ans at this location are performed using CT dose reduction for ALARA by means of automated exposure c ontrol. COMPARISON: None available. FINDINGS: LOWER CHEST: Small left pleural effusion with left lung base atelectasis. LIVER: Percutaneous intrahepatic drain is present in the brittny hepatis. There is a small subcapsular collection adjacent to the right lobe of the liver measuring 5.7 x 2.2 x 4.0 cm. This collection is a djacent to the intrahepatic drain. GALLBLADDER: Soft tissue density at the base of the gallbladder in the brittny hepatis. Small amount of gas in the gallbladder may be due to instrumentation. BILE DUCTS: Moderate pneumobilia especially in the left lobe of the liver. Metallic bile duct stent i s present from the intrahepatic bile ducts to the duodenum. Soft tissue mass adjacent to the proximal stent measures 3.3 x 4.5 cm as seen on axial series 2 image 88. PANCREAS: No significant abnormality. SPLEEN: No significant abnormality. ADRENALS: No significant abnormality. RIGHT KIDNEY / URETER: No significant abnormality. LEFT KIDNEY / URETER: No significant abnormality. STOMACH / SMALL BOWEL: No significant abnormality. COLON: Diverticulosis without acute inflammation. APPENDIX: No significant abnormality. PERITONEUM: No free fluid. No free air. No fluid collection. LYMPH NODES: Enlarged lymph nodes in the brittny hepatis and retroperitoneum measuring up to 1.4 cm in short axis. AORTA / ARTERIES: Mild atherosclerotic calcification without acute abnormality. IVC / VEINS: No significant abnormality. URINARY BLADDER: No significant abnormality. REPRODUCTIVE ORGANS: No significant abnormality. ADDITIONAL FINDINGS: None. SKELETAL SYSTEM: No significant abnormality. IMPRESSION: 1. Small perihepatic/subcapsular fluid collection adjacent to the right lobe of liver may represent d eveloping abscess. 2. Soft tissue mass in the brittny hepatis adjacent to the metallic bile duct stent could represent mas s such as cholangiocarcinoma. Brittny hepatis and retroperitoneal adenopathy. 3. Correlation with previous outside imaging would be helpful. Signer Name: Kuldeep Salmon MD Signed: 05/06/2021 7:36 PM Workstation Name: [id number]
[2021-05-06] MEDS ORDERED: PRAVASTATIN 20 MG TAB PO SCH (22:00)
[2021-05-06] MEDS ORDERED: NON-FORMULARY EACH (Enalapril Maleate [Vasotec] 20 MG Tablet) PO SCH (22:00)
[2021-05-07] MEDS: metroNIDAZOLE/NS 500 MG/100 ML 500 MG/100 ML BAG IV SCH ×2 (02:11→12:31)
[2021-05-07] MEDS: LISINOPRIL 20 MG TAB PO SCH ×3 (05:46→22:22)
[2021-05-07] MEDS: LEVOTHYROXINE 100 MCG TAB PO SCH (05:59)
[2021-05-07 06:57] LABS: Hematocrit 26.9 % (35.5-45.6); Hemoglobin 8.5 gm/dl (11.8-15.2); Mean Corpuscular HGB Conc 32 % (32-34); Mean Corpuscular Volume 85 fl (84-94); Platelet Count 208 K/mm3 (140-440); Red Blood Count 3.17 M/mm3 (3.65-5.03)
[2021-05-07 07:18] LABS: Alanine Aminotransferase 49 units/L (7-56); Albumin 2.1 g/dL (3.9-5); Blood Urea Nitrogen 26 mg/dL (9-20); Calcium 8.7 mg/dL (8.4-10.2); Hemolysis Index 3
[2021-05-07 07:19] LABS: BUN/Creatinine Ratio 37
--- NOTE | 2021-05-07 09:24 | Consultation ---
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 patient was noted to be febrile with a temperature of 103.5 and with marked leukocytosis and is being admitted for suspected sepsis. He is awake and alert and oriented to his name and age otherwise he is a poor historian. He says he is weak but denies any pain. He denies chest pain or shortness of breath. He is being admitted for suspected sepsis. Patient is DNR/DNI. He is vaccinated against COVID-19 on my evaluation he is alert interactive oriented to place and date in ER WBCS was initially 25K currently down to 18K Ct brain is unremarkable MRI wo gd showed bilateral scattered possible emboli bilateral frontal Echo is pending Past History Past Medical History: cancer (Biliary duct cancer), hypertension, hyperlipidemia, hypothyroidism, other (BPH) Past Surgical History: Other (Unable to obtain at this time) Social history: no significant social history Family history: other (Unable to obtain as the patient is confused, not pertinent to present admission) Medications and Allergies Allergies Allergy/AdvReac Type Severity Reaction Status Date / Time No Known Allergies Allergy Verified 05/05/21 08:17 Active Meds: Active Medications Acetaminophen (Acetaminophen 325 Mg Tab) 650 mg PO Q4H PRN PRN Reason: Pain MILD(1-3)/Fever >100.5/DAUGHERTY Hydromorphone HCl (Hydromorphone 1 Mg/1 Ml Inj) 0.25 mg IV Q4H PRN PRN Reason: Pain, Moderate (4-6) Ceftriaxone Sodium (Rocephin/Ns 2 Gm/100 Ml) 2 gm in 100 mls @ 200 mls/hr IV Q24H [facility]; Protocol Ondansetron HCl (Ondansetron 4 Mg/2 Ml Inj) 4 mg IV Q8H PRN PRN Reason: Nausea And Vomiting Sodium Chloride (Sodium Chloride 0.9% 10 Ml Flush Syringe) 10 ml IV BID [facility] Sodium Chloride (Sodium Chloride 0.9% 10 Ml Flush Syringe) 10 ml IV PRN PRN PRN Reason: LINE FLUSH Review of Systems Constitutional: weakness, no weight loss, no chronic headaches Ears, nose, mouth and throat: no ear pain, no sore throat Cardiovascular: no chest pain, no syncope, no shortness of breath Respiratory: no cough, no congestion Gastrointestinal: constipation, no abdominal pain, no nausea, no vomiting, no melena Genitourinary Male: no dysuria, no hematuria, no flank pain Musculoskeletal: no neck pain Neurological: no head injury, no headaches Psychiatric: confusion, irritability Past History Past Medical History: cancer (Biliary duct cancer), hypertension, hyperlipidem ia, hypothyroidism, other (BPH) Past Surgical History: Other (Unable to obtain at this time) Social history: no significant social history Family history: other (Unable to obtain as the patient is confused, not pertinent to present admission) Medications and Allergies Allergies Allergy/AdvReac Type Severity Reaction Status Date / Time No Known Allergies Allergy Verified 05/05/21 08:17 Home Medications Medication Instructions Recorded Confirmed Last Taken Type Aspirin [Vazalore] 81 mg PO QDAY 05/05/21 05/05/21 Unknown History Chlorpheniramine (Nf) 8 mg PO Q12H 05/05/21 05/05/21 Unknown History [Chlor-Trimeton (Nf)] Enalapril Maleate [Vasotec] 20 mg PO BID 05/05/21 05/05/21 Unknown History Levothyroxine Sodium 200 mcg PO DAILY 05/05/21 05/05/21 Unknown History [Levothyroxine] Pravastatin [Pravachol] 20 mg PO QHS 05/05/21 05/05/21 Unknown History Tamsulosin [Flomax] 0.4 mg PO QDAY 05/05/21 05/05/21 Unknown History amLODIPine [Norvasc] 5 mg PO DAILY 05/05/21 05/05/21 Unknown History Active Meds: Active Medications Acetaminophen (Acetaminophen 325 Mg Tab) 650 mg PO Q4H PRN PRN Reason: Pain MILD(1-3)/Fever >100.5/DAUGHERTY Last Admin: 05/06/21 23:44 Dose: 650 mg Documented by: Amlodipine Besylate (Amlodipine 5 Mg Tab) 5 mg PO DAILY [facility] Last Admin: 05/06/21 19:33 Dose: Not Given Documented by: Aspirin (Aspirin Ec 81 Mg Tab) 81 mg PO QDAY [facility] Atorvastatin Calcium (Atorvastatin 40 Mg Tab) 40 mg PO QHS [facility] Hydromorphone HCl (Hydromorphone 1 Mg/1 Ml Inj) 0.25 mg IV Q4H PRN PRN Reason: Pain, Moderate (4-6) Last Admin: 05/06/21 04:48 Dose: 0.25 mg Documented by: Ceftriaxone Sodium (Rocephin/Ns 2 Gm/100 Ml) 2 gm in 100 mls @ 200 mls/hr IV Q24H [facility]; Protocol Last Admin: 05/06/21 09:17 Dose: 200 mls/hr Documented by: Metronidazole (Flagyl 500 Mg/100 Ml) 500 mg in 100 mls @ 100 mls/hr IV Q8H [facility]; Protocol Last Admin: 05/07/21 02:11 Dose: 100 mls/hr Documented by: Levothyroxine Sodium (Levothyroxine 100 Mcg Tab) 200 mcg PO DAILY@0600 [facility] Last Admin: 05/07/21 05:59 Dose: 200 mcg Documented by: Lisinopril (Lisinopril 20 Mg Tab) 20 mg PO BID [facility] Last Admin: 05/07/21 05:46 Dose: Not Given Documented by: Miscellaneous Medication (Chlorpheniramine) 8 mg PO Q12H [facility] Ondansetron HCl (Ondansetron 4 Mg/2 Ml Inj) 4 mg IV Q8H PRN PRN Reason: Nausea And Vomiting Sodium Chloride (Sodium Chloride 0.9% 10 Ml Flush Syringe) 10 ml IV BID [facility] Last Admin: 05/07/21 02:12 Dose: 10 ml Documented by: Sodium Chloride (Sodium Chloride 0.9% 10 Ml Flush Syringe) 10 ml IV PRN PRN PRN Reason: LINE FLUSH Tamsulosin HCl (Tamsulosin 0.4 Mg Cap) 0.4 mg PO QDAY [facility] Physical Examination - Vital Signs Vital Signs: Vital Signs Pulse Ox 92 05/05/21 07:52 - Constitutional General appearance: comfortable - EENT EENT: Present: PERRL, mucous membranes moist - Respiratory Respiratory: Present: chest non-tender, lungs clear, rhonchi - Cardiovascular Cardiovascular: Present: regular rate, normal S1, normal S2 Extremities: Present: no peripheral edema bilatateraly, no clubbing, cyanosis - Gastrointestinal Gastrointestinal: Present: normoactive bowel sounds - Integumentary Integumentary: Present: normal - Neurologic Cranial nerve examination: PERRL, EOMI, intact Speech examination: intact Sensorimotor examination: intact Detailed motor examination: grossly full strength in Results - Laboratory Findings CBC and BMP: 05/07/21 05:14 05/07/21 05:14 Abnormal Lab Findings: Abnormal Labs 05/05/21 05/05/21 05/05/21 08:17 08:17 08:17 WBC 26.0 H RBC 3.44 L Hgb 9.4 L Hct 29.4 L MCH 27 L RDW 20.4 H Seg Neuts % (Manual) 98.0 H Seg Neutrophils # Man 25.5 H Lymphocytes # (Manual) 0.0 L APTT 38.7 H BUN 23 H Creatinine Glucose 142 H Calcium Total Bilirubin 2.60 H AST 66 H ALT 63 H Alkaline Phosphatase 490 H NT-Pro-B Natriuret Pep Total Protein Albumin 3.0 L Urine WBC (Auto) Salicylates Acetaminophen 05/05/21 05/05/21 05/05/21 08:17 08:17 08:17 WBC RBC Hgb Hct MCH RDW Seg Neuts % (Manual) Seg Neutrophils # Man Lymphocytes # (Manual) APTT BUN Creatinine Glucose Calcium Total Bilirubin AST ALT Alkaline Phosphatase NT-Pro-B Natriuret Pep 3157 H Total Protein Albumin Urine WBC (Auto) Salicylates < 0.3 L Acetaminophen 5.0 L 05/06/21 05/06/21 05/06/21 05:48 05:48 17:30 WBC 25.2 H RBC 3.35 L Hgb 9.1 L Hct 28.4 L MCH 27 L RDW 21.1 H Seg Neuts % (Manual) Seg Neutrophils # Man Lymphocytes # (Manual) APTT BUN 23 H Creatinine Glucose 149 H Calcium 8.2 L Total Bilirubin 2.30 H AST 58 H ALT 58 H Alkaline Phosphatase 459 H NT-Pro-B Natriuret Pep Total Protein 5.8 L Albumin 2.6 L Urine WBC (Auto) 13.0 H Salicylates Acetaminophen 05/07/21 05/07/21 05:14 05:14 WBC 18.1 H RBC 3.17 L Hgb 8.5 L Hct 26.9 L MCH 27 L RDW 21.0 H Seg Neuts % (Manual) Seg Neutrophils # Man Lymphocytes # (Manual) APTT BUN 26 H Creatinine 0.7 L Glucose 107 H Calcium Total Bilirubin 1.70 H AST 51 H ALT Alkaline Phosphatase 365 H NT-Pro-B Natriuret Pep Total Protein 5.5 L Albumin 2.1 L Urine WBC (Auto) Salicylates Acetaminophen Assessment and Plan Assessment and Plan this is 85 ys old male presented with fever and confusion he is with Hx of cancer billiary duct - Patient Problems # Sepsis Started on sepsis pathway Blood cultures obtained Rocephin 2 g IV daily empiric ID consult Follow-up on blood culture results # CVA -MRI brain is remarkable for bilateral frontal embolic event -Blood C/s positive for E.Coli -SBEC can not be excluded -Metastesis can not be excluded -echo is pending -started on ASA and lipitor # Hypothyroidism Patient's home medication list is not available Discussed with RN in the ED # History of hypertension His blood pressure is in the normal range Home medication list is not available at this time # Hyperglycemia check A1C Initiate insulin sliding scale coverage and Accu-Cheks before meals and at bedtime # Cancer of biliary duct or passage History of biliary drain placement Outpatient follow-up with his oncologist He is DNR/DNI Patient's family is against any paracentesis at this time # Acute encephalopathy Likely secondary to sepsis Lactic acid levels ordered Positive sepsis indicators are high-grade fever, tachycardia, altered mentation, leukocytosis # Acute febrile illness Most likely secondary to suspected sepsis Rule out viral syndrome Covid test ordered Acetaminophen as needed Await blood culture results # Do not resuscitate status Current Visit: Yes Status: Acute PLAN 1- treat underlying infection 2- review echo 3- Consider SUN r/o SBEC ? 4- cardiac catheterization technician ? AF 5- repeat MRI brain with gd R/O Emboli will follow
[2021-05-07] MEDS ORDERED: NON-FORMULARY EACH (Aspirin [Vazalore] 81 MG Capsule) PO SCH (10:00)
[2021-05-07] MEDS ORDERED: LEVOTHYROXINE SODIUM 200 MCG PO SCH (10:00)
--- NOTE | 2021-05-07 10:28 | Cat Scan Report ---
CT angio neck INDICATION / CLINICAL INFORMATION: 85 years Male; cva OMNI 350 100 ML. TECHNIQUE: Thin cut axial images obtained through the head during IV bolus contrast administration. S agittal, coronal, and 3 plane MIP reconstructions performed by the technologist. NASCET type criteria used evaluate stenoses. All CT scans at this location are performed using CT dose reduction for ALAR A by means of automated exposure control. COMPARISON: None available. FINDINGS: CAROTID ARTERIES: There is atherosclerotic calcification involving carotid bifurcations and proximal ICAs bilaterally with streak artifact at. However, there appears be mild, approximately 20% stenosis on the right by NASCET criteria. There is no significant stenosis on the left. VERTEBRAL ARTERIES: There is a focus of calcification at the origin of the left vertebral artery. Ove r, there is no significant focal stenosis involving this vessel. There is more notable calcification at the origin of the right vertebral artery with moderate to marked stenosis at. ARCH: There is mild calcification involving aortic arch and arch vessels. However, there is no signif icant stenosis of the origins of the arch of vessels. ADDITIONAL FINDINGS: Remainder of the surrounding soft tissues are grossly normal. IMPRESSION: There is also slight calcification involving proximal internal carotid arteries with mild, 20% stenos is on the right. There is also calcification at the origin of the right vertebral artery with moderate to marked steno sis. Signer Name: Clyde Nevarez MD Signed: 05/07/2021 10:23 AM Workstation Name: [id number]
--- NOTE | 2021-05-07 10:37 | Cat Scan Report ---
CT angio head INDICATION / CLINICAL INFORMATION: 85 years Male; cva OMNI 350 100 ML. TECHNIQUE: Thin cut axial images obtained through the head during IV bolus contrast administration. S agittal, coronal, and 3 plane MIP reconstructions performed by the technologist. NASCET type criteria used evaluate stenoses. Automated exposure control utilized for radiation reduction purposes. COMPARISON: None available. FINDINGS: INTERNAL CAROTID ARTERIES: There is atherosclerotic calcification involving distal internal carotid a rteries bilaterally. However, there is no significant focal stenosis by NASCET criteria. VERTEBROBASILAR SYSTEM: There is also mild calcification involving the proximal intracranial vertebra l arteries without significant focal narrowing at. The basilar artery is unremarkable. 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 The middle cerebral arteries demonstrate appropriate caliber without significant focal stenosis invo lving proximal or adjacent segments at. ANEURYSM: On the earlier MRI of 05/06/2021, rounded a decrease signal was seen along the anterior left MCA near the trifurcation on the susceptibility weighted imaging. However, there is no CTA evidence of aneurysm within this region or involving the remaining intracranial vessels and the findings on MR I are likely within the adjacent parenchyma. ADDITIONAL FINDINGS: Remainder of the surrounding soft tissues are grossly normal. IMPRESSION: There is no CTA evidence of intracranial aneurysm, particularly along the region of the left MCA trif urcation as detailed above at. There is milder calcification involving intracranial ICAs and vertebral arteries without significant stenosis by NASCET criteria. Signer Name: Clyde Nevarez MD Signed: 05/07/2021 10:32 AM Workstation Name: [id number]
--- NOTE | 2021-05-07 11:52 | Consultation ---
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 Patient is a poor historian. States he has been to multiple hospitals recently. Denies abd pain, vomiting. States he is nauseated at times. No fever in 24 hours. Most of the history is obtained from the chart and patient's daughter over telephone. Per patient's daughter he was taken to [facility] Apr 22 due to jaundice, dark urine. Work up revealed biliary obstruction. On Apr 23, a Percutaneous biliary drain was inserted by Dr. Walker. On Apr 25, patient underwent ERCP with CBD stent (Dr. Jose G Young), biopsies and the PTC drain was internalized. 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 He was subsequently discharged and followed up with Dr. Lalo Aguiar (oncology, [phone]) on Apr 29. Plan after discussion of prognosis was to start with one round of chemo and then see how they wanted to proceed. Patient had appointment coming up to have biliary catheter removed @ [facility]. Patient's daughter unsure of who patient was going to see for this. Patient underwent w/u for sepsis at [facility] which included Ct A/P. This showed a biliary stent, transhepatic biliary drain with adjacent fluid collection concerning for developing abscess. Surgery is consulted for further evaluation. Past History Past Medical History: cancer (Biliary duct cancer), hypertension, hyperlipidemia, hypothyroidism, other (BPH) Past Surgical History: Other (Biliary stent and external drain) Social history: no significant social history Family history: other (Unable to obtain as the patient is confused, not pertinent to present admission) Medications and Allergies Allergies Allergy/AdvReac Type Severity Reaction Status Date / Time No Known Allergies Allergy Verified 05/05/21 08:17 Home Medications Medication Instructions Recorded Confirmed Last Taken Type Aspirin [Vazalore] 81 mg PO QDAY 05/05/21 05/05/21 Unknown History Chlorpheniramine (Nf) 8 mg PO Q12H 05/05/21 05/05/21 Unknown History [Chlor-Trimeton (Nf)] Enalapril Maleate [Vasotec] 20 mg PO BID 05/05/21 05/05/21 Unknown History Levothyroxine Sodium 200 mcg PO DAILY 05/05/21 05/05/21 Unknown History [Levothyroxine] Pravastatin [Pravachol] 20 mg PO QHS 05/05/21 05/05/21 Unknown History Tamsulosin [Flomax] 0.4 mg PO QDAY 05/05/21 05/05/21 Unknown History amLODIPine [Norvasc] 5 mg PO DAILY 05/05/21 05/05/21 Unknown History Active Meds: Active Medications Acetaminophen (Acetaminophen 325 Mg Tab) 650 mg PO Q4H PRN PRN Reason: Pain MILD(1-3)/Fever >100.5/DAUGHERTY Last Admin: 05/06/21 23:44 Dose: 650 mg Documented by: Amlodipine Besylate (Amlodipine 5 Mg Tab) 5 mg PO DAILY [facility] Last Admin: 05/06/21 19:33 Dose: Not Given Documented by: Aspirin (Aspirin Ec 81 Mg Tab) 81 mg PO QDAY [facility] Atorvastatin Calcium (Atorvastatin 40 Mg Tab) 40 mg PO QHS [facility] Hydromorphone HCl (Hydromorphone 1 Mg/1 Ml Inj) 0.25 mg IV Q4H PRN PRN Reason: Pain, Moderate (4-6) Last Admin: 05/06/21 04:48 Dose: 0.25 mg Documented by: Ceftriaxone Sodium (Rocephin/Ns 2 Gm/100 Ml) 2 gm in 100 mls @ 200 mls/hr IV Q24H [facility]; Protocol Last Admin: 05/06/21 09:17 Dose: 200 mls/hr Documented by: Metronidazole (Flagyl 500 Mg/100 Ml) 500 mg in 100 mls @ 100 mls/hr IV Q8H [facility]; Protocol Last Admin: 05/07/21 02:11 Dose: 100 mls/hr Documented by: Levothyroxine Sodium (Levothyroxine 100 Mcg Tab) 200 mcg PO DAILY@0600 [facility] Last Admin: 05/07/21 05:59 Dose: 200 mcg Documented by: Lisinopril (Lisinopril 20 Mg Tab) 20 mg PO BID [facility] Last Admin: 05/07/21 05:46 Dose: Not Given Documented by: Miscellaneous Medication (Chlorpheniramine) 8 mg PO Q12H [facility] Ondansetron HCl (Ondansetron 4 Mg/2 Ml Inj) 4 mg IV Q8H PRN PRN Reason: Nausea And Vomiting Sodium Chloride (Sodium Chloride 0.9% 10 Ml Flush Syringe) 10 ml IV BID [facility] Last Admin: 05/07/21 02:12 Dose: 10 ml Documented by: Sodium Chloride (Sodium Chloride 0.9% 10 Ml Flush Syringe) 10 ml IV PRN PRN PRN Reason: LINE FLUSH Tamsulosin HCl (Tamsulosin 0.4 Mg Cap) 0.4 mg PO QDAY [facility] Review of Systems All systems: negative (10 pt ROS performed and negative except for that listed in HPI) Exam Vital Signs Pulse Ox 92 05/05/21 07:52 Narrative exam: Gen; AAox3. NAD ENT: no scleral icterus or conjunctival pallor CV: s1, S2+ Resp: even and unlabored Abd: soft, protuberant, NT, ND. There is a RUQ catheter which is intact (not connected to drainage bag) Ext: b/l LE edema Results - Labs 05/07/21 05:14 05/07/21 05:14 Abnormal lab results 05/06/21 05/07/21 05/07/21 Range/Units 17:30 05:14 05:14 WBC 18.1 H (4.5-11.0) K/mm3 RBC 3.17 L (3.65-5.03) M/mm3 Hgb 8.5 L (11.8-15.2) gm/dl Hct 26.9 L (35.5-45.6) % MCH 27 L (28-32) pg RDW 21.0 H (13.2-15.2) % BUN 26 H (9-20) mg/dL Creatinine 0.7 L (0.8-1.3) mg/dL Glucose 107 H (75-100) mg/dL Total Bilirubin 1.70 H (0.1-1.2) mg/dL AST 51 H (5-40) units/L Alkaline Phosphatase 365 H (35-129) units/L Total Protein 5.5 L (6.3-8.2) g/dL Albumin 2.1 L (3.9-5) g/dL Urine WBC (Auto) 13.0 H (0.0-6.0) /HPF Diabetes panel 05/07/21 Range/Units 05:14 Sodium 140 (137-145) mmol/L Potassium 3.8 (3.6-5.0) mmol/L Chloride 103.6 (98-107) mmol/L Carbon Dioxide 30 (22-30) mmol/L BUN 26 H (9-20) mg/dL Creatinine 0.7 L (0.8-1.3) mg/dL Glucose 107 H (75-100) mg/dL Calcium 8.7 (8.4-10.2) mg/dL AST 51 H (5-40) units/L ALT 49 (7-56) units/L Alkaline Phosphatase 365 H (35-129) units/L Total Protein 5.5 L (6.3-8.2) g/dL Albumin 2.1 L (3.9-5) g/dL Calcium panel 05/07/21 Range/Units 05:14 Calcium 8.7 (8.4-10.2) mg/dL Albumin 2.1 L (3.9-5) g/dL Pituitary panel 05/07/21 Range/Units 05:14 Sodium 140 (137-145) mmol/L Potassium 3.8 (3.6-5.0) mmol/L Chloride 103.6 (98-107) mmol/L Carbon Dioxide 30 (22-30) mmol/L BUN 26 H (9-20) mg/dL Creatinine 0.7 L (0.8-1.3) mg/dL Glucose 107 H (75-100) mg/dL Calcium 8.7 (8.4-10.2) mg/dL Adrenal panel 05/07/21 Range/Units 05:14 Sodium 140 (137-145) mmol/L Potassium 3.8 (3.6-5.0) mmol/L Chloride 103.6 (98-107) mmol/L Carbon Dioxide 30 (22-30) mmol/L BUN 26 H (9-20) mg/dL Creatinine 0.7 L (0.8-1.3) mg/dL Glucose 107 H (75-100) mg/dL Calcium 8.7 (8.4-10.2) mg/dL Total Bilirubin 1.70 H (0.1-1.2) mg/dL AST 51 H (5-40) units/L ALT 49 (7-56) units/L Alkaline Phosphatase 365 H (35-129) units/L Total Protein 5.5 L (6.3-8.2) g/dL Albumin 2.1 L (3.9-5) g/dL - Imaging Chest x-ray: report reviewed, image reviewed CT scan - abdomen: report reviewed, image reviewed CT scan - pelvis: report reviewed, image reviewed Assessment and Plan 85 yo M with 1. sepsis 2. E coli bacteremia 3. cholangiocarcinoma - Dx 04/22/21. ?cholangitis Plan: 1. Trend LFTs, bili - currently trending down 2. Diet as tolerated - add protein supplement 3. IV abx per ID 4. Ct scan reviewed - homogenous fluid collection near transhepatic drain with features most consistent with hematoma. Will monitor - if patient spikes fever or WBC starts to trend up, recommend repeat CT Abd 5. Record request order placed to obtain recent records, imaging results from [facility]. Plan discussed with patient's daughter No acute surgical intervention at this time. D/W Dr. Peters
[2021-05-07] MEDS: ACETAMINOPHEN 325 MG TAB PO PRN (12:30)
[2021-05-07] MEDS: ASPIRIN EC 81 MG TAB PO SCH (12:30)
[2021-05-07] MEDS: amLODIPine 5 MG TAB PO SCH (12:38)
--- NOTE | 2021-05-07 12:39 | Progress Note ---
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 patient was noted to be febrile with a temperature of 103.5 and with marked leukocytosis and is being admitted for suspected sepsis. He is awake and alert and oriented to his name and age otherwise he is a poor historian. He says he is weak but denies any pain. He denies chest pain or shortness of breath. He is being admitted for suspected sepsis. Patient is DNR/DNI. He is vaccinated against COVID-19 05/06: Initial head CT some remarkable. There is enough doubt to fully evaluate CVA. Will obtain neurology consult. Also with recent diagnosis of CVA it may be imperative to get an MRI of the brain to rule out any metastatic spread. Aspiration precautions discussed with nursing staff. Otherwise continue current management for sepsis as noted below. 05/07: Imaging study of the brain concerning for possible Lacunar embolic CVA- Await Neuro eval, obtain, ECHO, Cards consult Discussed with surgeon about Abdominal CT findings, Abscess vs Hematoma, the latter is favors, nevertheless continue to monitor vitals, H/H and any fever. Repeat CTA/P if concern continues. PT/OT Plan discussed with patient and IDT (1) Sepsis Current Visit: Yes Status: Acute Qualifiers: Sepsis type: sepsis due to unspecified organism Sepsis acute organ dysfunction status: without acute organ dysfunction Qualified Code(s): A41.9 - Sepsis, unspecified organism Plan to address problem: Started on sepsis pathway Blood cultures obtained Rocephin 2 g IV daily empiric ID consult Follow-up on blood culture results (2) Hypothyroidism Current Visit: Yes Status: Chronic Qualifiers: Hypothyroidism type: acquired Qualified Code(s): E03.9 - Hypothyroidism, unspecified Plan to address problem: Patient's home medication list is not available Discussed with RN in the ED (3) History of hypertension Current Visit: Yes Status: Chronic Plan to address problem: His blood pressure is in the normal range Home medication list is not available at this time (4) Hyperglycemia Current Visit: Yes Status: Chronic Plan to address problem: check A1C Initiate insulin sliding scale coverage and Accu-Cheks before meals and at bedtime (5) Cancer of biliary duct or passage Current Visit: Yes Status: Acute Plan to address problem: History of biliary drain placement Outpatient follow-up with his oncologist He is DNR/DNI Patient's family is against any paracentesis at this time (6) Acute encephalopathy Current Visit: Yes Status: Acute Plan to address problem: Likely secondary to sepsis Lactic acid levels ordered Positive sepsis indicators are high-grade fever, tachycardia, altered mentation, leukocytosis (7) Acute febrile illness Current Visit: Yes Status: Acute Plan to address problem: Most likely secondary to suspected sepsis Rule out viral syndrome Covid test ordered Acetaminophen as needed Await blood culture results (8) Do not resuscitate status Current Visit: Yes Status: Acute History Interval history: Patient seen and examined this morning remains on nasal cannula. Speech is much improved, states he has not ambulated in a few days Hospitalist Physical - Physical exam Narrative exam: General appearance: Present: no acute distress, well-nourished, - EENT Eyes: Present: PERRL, EOM intact ENT: hearing intact, clear oral mucosa - Neck Neck: Present: supple, normal ROM. Absent: masses or JVD - Respiratory Respiratory effort: normal Respiratory: bilateral: CTA, diminished, negative: rales, rhonchi - Cardiovascular Rhythm: regular - Extremities Extremity abnormal: edema (Bilateral lower extremity edema with stasis skin changes,) - Abdominal General gastrointestinal: Present: soft, distended, normal bowel sounds Male genitourinary: Present: deferred - Rectal Rectal Exam: deferred - Integumentary Integumentary: Present: clear - Musculoskeletal Musculoskeletal: generalized weakness - Neurologic Neurologic: moves all extremities - Constitutional Vitals: Temp Pulse Resp BP Pulse Ox 98.3 F 90 20 116/67 91 05/07/21 11:56 05/07/21 12:38 05/07/21 11:56 05/07/21 12:38 05/07/21 11:56 General appearance: Present: no acute distress, well-nourished HEART Score - HEART Score Troponin: Troponin T 0.024 ng/mL (0.00-0.029) 05/05/21 08:17 Results - Labs CBC & Chem 7: 05/08/21 05:14 05/08/21 05:14 Labs: Laboratory Last Values WBC 18.1 K/mm3 (4.5-11.0) H 05/07/21 05:14 RBC 3.17 M/mm3 (3.65-5.03) L 05/07/21 05:14 Hgb 8.5 gm/dl (11.8-15.2) L 05/07/21 05:14 Hct 26.9 % (35.5-45.6) L 05/07/21 05:14 MCV 85 fl (84-94) 05/07/21 05:14 MCH 27 pg (28-32) L 05/07/21 05:14 MCHC 32 % (32-34) 05/07/21 05:14 RDW 21.0 % (13.2-15.2) H 05/07/21 05:14 Plt Count 208 K/mm3 (140-440) 05/07/21 05:14 Add Manual Diff Complete 05/05/21 08:17 Total Counted 100 05/05/21 08:17 Seg Neutrophils % [employer] Sales Consultant 05/05/21 08:17 Seg Neuts % (Manual) 98.0 % (40.0-70.0) H 05/05/21 08:17 Monocytes % (Manual) 2.0 % (0.0-7.3) 05/05/21 08:17 Nucleated RBC % Not Reportable 05/05/21 08:17 Seg Neutrophils # Man 25.5 K/mm3 (1.8-7.7) H 05/05/21 08:17 Band Neutrophils # 0.0 K/mm3 05/05/21 08:17 Lymphocytes # (Manual) 0.0 K/mm3 (1.2-5.4) L 05/05/21 08:17 Abs React Lymphs (Man) 0.0 K/mm3 05/05/21 08:17 Monocytes # (Manual) 0.5 K/mm3 (0.0-0.8) 05/05/21 08:17 Eosinophils # (Manual) 0.0 K/mm3 (0.0-0.4) 05/05/21 08:17 Basophils # (Manual) 0.0 K/mm3 (0.0-0.1) 05/05/21 08:17 Metamyelocytes # 0.0 K/mm3 05/05/21 08:17 Myelocytes # 0.0 K/mm3 05/05/21 08:17 Promyelocytes # 0.0 K/mm3 05/05/21 08:17 Blast Cells # 0.0 K/mm3 05/05/21 08:17 WBC Morphology Not Reportable 05/05/21 08:17 WBC Morphology TNR 05/05/21 08:17 Hypersegmented Neuts Not Reportable 05/05/21 08:17 Hyposegmented Neuts Not Reportable 05/05/21 08:17 Hypogranular Neuts Not Reportable 05/05/21 08:17 Smudge Cells Not Reportable 05/05/21 08:17 Toxic Granulation Not Reportable 05/05/21 08:17 Toxic Vacuolation Not Reportable 05/05/21 08:17 Dohle Bodies Not Reportable 05/05/21 08:17 Pelger-Huet Anomaly Not Reportable 05/05/21 08:17 Ryan Rods Not Reportable 05/05/21 08:17 Platelet Estimate Consistent w auto 05/05/21 08:17 Clumped Platelets Not Reportable 05/05/21 08:17 Plt Clumps, EDTA Not Reportable 05/05/21 08:17 Large Platelets Not Reportable 05/05/21 08:17 Giant Platelets Not Reportable 05/05/21 08:17 Platelet Satelliting Not Reportable 05/05/21 08:17 Plt Morphology Comment Not Reportable 05/05/21 08:17 RBC Morphology Not Reportable 05/05/21 08:17 Dimorphic RBCs Not Reportable 05/05/21 08:17 Polychromasia Not Reportable 05/05/21 08:17 Hypochromasia Few 05/05/21 08:17 Poikilocytosis Not Reportable 05/05/21 08:17 Anisocytosis Not Reportable 05/05/21 08:17 Microcytosis Not Reportable 05/05/21 08:17 Macrocytosis Not Reportable 05/05/21 08:17 Spherocytes Not Reportable 05/05/21 08:17 Pappenheimer Bodies Not Reportable 05/05/21 08:17 Sickle Cells Not Reportable 05/05/21 08:17 Target Cells Few 05/05/21 08:17 Tear Drop Cells Few 05/05/21 08:17 Ovalocytes Not Reportable 05/05/21 08:17 Helmet Cells Not Reportable 05/05/21 08:17 [place] Bodies Not Reportable 05/05/21 08:17 Bailey Rings Not Reportable 05/05/21 08:17 Kelley Cells Not Reportable 05/05/21 08:17 Bite Cells Not Reportable 05/05/21 08:17 Crenated Cell Not Reportable 05/05/21 08:17 Elliptocytes Not Reportable 05/05/21 08:17 Acanthocytes (Spur) Not Reportable 05/05/21 08:17 Rouleaux Not Reportable 05/05/21 08:17 Hemoglobin C Crystals Not Reportable 05/05/21 08:17 Schistocytes Not Reportable 05/05/21 08:17 Malaria parasites Not Reportable 05/05/21 08:17 Stephen Bodies Not Reportable 05/05/21 08:17 Hem Pathologist Commnt No 05/05/21 08:17 PT 14.7 Sec. (12.2-14.9) 05/05/21 08:17 INR 1.09 (0.87-1.13) 05/05/21 08:17 APTT 38.7 Sec. (24.2-36.6) H 05/05/21 08:17 Sodium 140 mmol/L (137-145) 05/07/21 05:14 Potassium 3.8 mmol/L (3.6-5.0) 05/07/21 05:14 Chloride 103.6 mmol/L (98-107) 05/07/21 05:14 Carbon Dioxide 30 mmol/L (22-30) 05/07/21 05:14 Anion Gap 10 mmol/L 05/07/21 05:14 BUN 26 mg/dL (9-20) H 05/07/21 05:14 Creatinine 0.7 mg/dL (0.8-1.3) L 05/07/21 05:14 Estimated GFR > 60 ml/min 05/07/21 05:14 BUN/Creatinine Ratio 37 % 05/07/21 05:14 Glucose 107 mg/dL (75-100) H 05/07/21 05:14 Lactic Acid 1.30 mmol/L (0.7-2.0) 05/05/21 08:17 Calcium 8.7 mg/dL (8.4-10.2) 05/07/21 05:14 Magnesium 1.80 mg/dL (1.7-2.3) 05/05/21 08:17 Total Bilirubin 1.70 mg/dL (0.1-1.2) H 05/07/21 05:14 AST 51 units/L (5-40) H 05/07/21 05:14 ALT 49 units/L (7-56) 05/07/21 05:14 Alkaline Phosphatase 365 units/L (35-129) H 05/07/21 05:14 Ammonia 27.0 umol/L (25-60) 05/05/21 08:17 Total Creatine Kinase 99 units/L (55-170) 05/05/21 08:17 Total Creatine Kinase 99 units/L (55-170) 05/05/21 08:17 Troponin T 0.024 ng/mL (0.00-0.029) 05/05/21 08:17 NT-Pro-B Natriuret Pep 3157 pg/mL (0-900) H 05/05/21 08:17 Total Protein 5.5 g/dL (6.3-8.2) L 05/07/21 05:14 Albumin 2.1 g/dL (3.9-5) L 05/07/21 05:14 Albumin/Globulin Ratio 0.6 % 05/07/21 05:14 TSH 2.310 mlU/mL (0.270-4.200) 05/05/21 08:17 Urine Color Catrina (Yellow) 05/06/21 17:30 Urine Turbidity Clear (Clear) 05/06/21 17:30 Urine pH 5.0 (5.0-7.0) 05/06/21 17:30 Ur Specific [place] 1.015 (1.003-1.030) 05/06/21 17:30 Urine Protein 30 mg/dl mg/dL (Negative) 05/06/21 17:30 Urine Glucose (UA) Neg mg/dL (Negative) 05/06/21 17:30 Urine Ketones Neg mg/dL (Negative) 05/06/21 17:30 Urine Blood Neg (Negative) 05/06/21 17:30 Urine Nitrite Neg (Negative) 05/06/21 17:30 Urine Bilirubin Neg (Negative) 05/06/21 17:30 Urine Urobilinogen 4.0 mg/dL (<2.0) 05/06/21 17:30 Ur Leukocyte Esterase Neg (Negative) 05/06/21 17:30 Urine WBC (Auto) 13.0 /HPF (0.0-6.0) H 05/06/21 17:30 Urine RBC (Auto) 7.0 /HPF (0.0-6.0) 05/06/21 17:30 U Epithel Cells (Auto) 1.0 /HPF (0-13.0) 05/06/21 17:30 Urine Mucus 2+ /HPF 05/06/21 17:30 Urine Yeast (Budding) 2+ /HPF 05/06/21 17:30 Salicylates < 0.3 mg/dL (2.8-20.0) L 05/05/21 08:17 Acetaminophen 5.0 ug/mL (10.0-30.0) L 05/05/21 08:17 Plasma/Serum Alcohol < 0.01 % (0-0.07) 05/05/21 08:17 Coronavirus (PCR) Negative (Negative) 05/05/21 Unknown Blood Type AB POSITIVE 05/05/21 08:11 Antibody Screen Negative 05/05/21 08:11 Microbiology: Microbiology 05/05/21 08:17 Peripheral/Venous Blood Culture - Preliminary Escherichia Coli 05/05/21 08:17 Peripheral/Venous Blood Culture - Preliminary Escherichia Coli 05/05/21 Unknown Urine,Catheterized - Straight Catheter Urine Culture - Final Active Medications - Current Medications Current Medications: Generic Name Dose Route Start Last Admin Trade Name Freq PRN Reason Stop Dose Admin Acetaminophen 650 mg 05/05/21 11:30 05/07/21 12:30 Acetaminophen 325 Mg Tab PO 650 mg Q4H PRN Administration Pain MILD(1-3)/Fever >100.5/DAUGHERTY Amlodipine Besylate 5 mg 05/06/21 16:00 05/07/21 12:38 Amlodipine 5 Mg Tab PO Not Given DAILY [facility] Aspirin 81 mg 05/07/21 10:00 05/07/21 12:30 Aspirin Ec 81 Mg Tab PO 81 mg QDAY [facility] Administration Atorvastatin Calcium 40 mg 05/07/21 22:00 Atorvastatin 40 Mg Tab PO QHS [facility] Hydromorphone HCl 0.25 mg 05/05/21 11:30 05/06/21 04:48 Hydromorphone 1 Mg/1 Ml Inj IV 0.25 mg Q4H PRN Administration Pain, Moderate (4-6) Ceftriaxone Sodium 2 gm in 100 mls @ 200 mls/hr 08/16/21 09:00 05/06/21 09:17 Rocephin/Ns 2 Gm/100 Ml IV 200 mls/hr Q24H [facility] Administration Protocol Metronidazole 500 mg in 100 mls @ 100 mls/hr 05/06/21 17:00 05/07/21 12:31 Flagyl 500 Mg/100 Ml IV 100 mls/hr Q8H [facility] Administration Protocol Levothyroxine Sodium 200 mcg 05/07/21 06:00 05/07/21 05:59 Levothyroxine 100 Mcg Tab PO 200 mcg DAILY@0600 [facility] Administration Lisinopril 20 mg 05/06/21 22:00 05/07/21 10:00 Lisinopril 20 Mg Tab PO Not Given BID [facility] Miscellaneous Medication 8 mg 05/06/21 15:15 Chlorpheniramine PO Q12H [facility] Ondansetron HCl 4 mg 05/05/21 11:30 Ondansetron 4 Mg/2 Ml Inj IV Q8H PRN Nausea And Vomiting Sodium Chloride 10 ml 05/05/21 12:00 05/07/21 12:38 Sodium Chloride 0.9% 10 Ml Flush Syringe IV 10 ml BID [facility] Administration Sodium Chloride 10 ml 05/05/21 11:30 05/07/21 12:37 Sodium Chloride 0.9% 10 Ml Flush Syringe IV 10 ml PRN PRN Administration LINE FLUSH Tamsulosin HCl 0.4 mg 05/07/21 16:00 Tamsulosin 0.4 Mg Cap PO QDAY [facility]
[2021-05-07 13:36] LABS: Chol/HDL Ratio 5.45 %
--- NOTE | 2021-05-07 13:54 | Progress Note ---
Assessment and Plan Cultures: 05/05/2021 blood culture: E. 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 UA with mild pyuria, culture without growth. CT abdomen pelvis showed small perihepatic/subcapsular fluid collection adjacent to right lobe of liver suggestive of possible abscess. 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 Evaluated by general surgery, suspicious of hematoma. #History of cholangiocarcinoma: Status post biliary drain placement. He is DNR/DNI, follows with oncology as outpatient. #Bilateral lacunar infarction/CVA: Noted on MRI. Neurology following. #Acute encephalopathy: Likely from sepsis. Also CVA Recs: -continue Ceftriaxone -Flagyl discontinued -monitor fever and WBC count -f/u TTE, however E.coli endocarditis is very rare -overall, guarded prognosis (pt is DNR/DNI which is appropriate) Geraldine Lau MD, FACP [facility] O: [phone] F: [phone] Subjective Date of service: 05/07/21 Interval history: No fever. No new complaints. Had CT done yesterday. Was also seen by surgery. Objective - Exam Narrative Exam: Physical Exam: Constitutional: Awake, alert Head, Ears, Nose: Normocephalic, atraumatic. External ears, nose normal Eyes: Conjunctivae/corneas clear. No icterus. No ptosis. Neck: Supple, no meningeal signs Cardiovascular: S1, S2 + Respiratory: Good air entry, clear to auscultation bilaterally GI: Soft, non-tender; bowel sounds normal. No peritoneal signs Musculoskeletal: No pedal edema, no cyanosis. Skin: No rash or abscess Hem/Lymphatic: No palpable cervical or supraclavicular nodes. No lymphangitis Psych: no agitation Neurological: Awake, alert - Constitutional Vitals: Vital Signs Temp Pulse Resp BP Pulse Ox 98.3 F 90 20 116/67 98 05/07/21 11:56 05/07/21 12:38 05/07/21 11:56 05/07/21 12:38 05/07/21 13:29 Temperature -Last 24 Hours Temperature 98.3 F Temperature 98.4 F Temperature 98.4 F Temperature 99.0 F Temperature 98.1 F - Labs CBC & Chem 7: 05/07/21 05:14 05/07/21 05:14 Labs: Abnormal lab results 05/06/21 05/07/21 05/07/21 Range/Units 17:30 05:14 05:14 WBC 18.1 H (4.5-11.0) K/mm3 RBC 3.17 L (3.65-5.03) M/mm3 Hgb 8.5 L (11.8-15.2) gm/dl Hct 26.9 L (35.5-45.6) % MCH 27 L (28-32) pg RDW 21.0 H (13.2-15.2) % BUN 26 H (9-20) mg/dL Creatinine 0.7 L (0.8-1.3) mg/dL Glucose 107 H (75-100) mg/dL Total Bilirubin 1.70 H (0.1-1.2) mg/dL AST 51 H (5-40) units/L Alkaline Phosphatase 365 H (35-129) units/L Total Protein 5.5 L (6.3-8.2) g/dL Albumin 2.1 L (3.9-5) g/dL HDL Cholesterol (40-59) mg/dL Urine WBC (Auto) 13.0 H (0.0-6.0) /HPF 05/07/21 Range/Units 11:59 WBC (4.5-11.0) K/mm3 RBC (3.65-5.03) M/mm3 Hgb (11.8-15.2) gm/dl Hct (35.5-45.6) % MCH (28-32) pg RDW (13.2-15.2) % BUN (9-20) mg/dL Creatinine (0.8-1.3) mg/dL Glucose (75-100) mg/dL Total Bilirubin (0.1-1.2) mg/dL AST (5-40) units/L Alkaline Phosphatase (35-129) units/L Total Protein (6.3-8.2) g/dL Albumin (3.9-5) g/dL HDL Cholesterol 24 L (40-59) mg/dL Urine WBC (Auto) (0.0-6.0) /HPF
--- NOTE | 2021-05-07 15:21 | Magnetic Resonance Report ---
MR brain w con INDICATION / CLINICAL INFORMATION: 85 years Male; cancer biliary duct r/o met. TECHNIQUE: Multiplanar, multisequence postcontrast MR images of the brain were obtained. COMPARISON: The study is compared with the precontrast study of 05/06/2021. FINDINGS: BRAIN / INTRACRANIAL CONTENTS: The motion significantly degrades image quality despite repeat imaging . However, no definitive intracranial enhancing lesions are appreciated. There is again note of mild enlargement of the lateral and third ventricles which is unchanged at. Small foci of recent infarctio n were seen along the high cerebral subcortical regions bilaterally on the previous diffusion imaging . ORBITS: There is note of a 1 cm enhancing lesion along the posterior, superior right orbit near the a pex. This finding at demonstrates fairly homogeneous intense enhancement and may reflect small chandu ioma. This finding appears to encroach on the right superior rectus muscle. SINUSES / MASTOIDS: No significant abnormality in the visualized paranasal sinuses or mastoid air quirino ls. ADDITIONAL FINDINGS: None. IMPRESSION: 1. Additional postcontrast imaging demonstrates a 1 cm enhancing lesion within the superior, posterio r right orbit indicative of a hemangioma as detailed above. 2. The study is limited by motion though no definitive intracranial enhancing lesions are appreciated at. Signer Name: Clyde Nevarez MD Signed: 05/07/2021 3:17 PM Workstation Name: [id number]
[2021-05-07] MEDS: cefTRIAXone/NS 2 GM/100 ML 2 GM/100 ML BAG IV SCH (15:33)
--- NOTE | 2021-05-07 16:27 | Consultation ---
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 who lives with his daughter and was brought to the ED because she found him to be weak, confused, and unable to stand. In the ED patient was found to have a temp of 103.5 and septic. History is taken from chart because at time of interview although the patient is alert the patient is a poor historian. Patient was seen in on April 22 for dark urine and jaundice at [facility]. 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 Currently the patient has no complaint of chest pain, palpitations, SOB, dyspnea on exertion, nausea, or vomiting, The patient is followed by Dr. Brasher of our practice. Cardiology is consulted for heart failure and possible embolic CVA. Past History Past Medical History: cancer (Biliary duct cancer), hypertension, hyperlipidemia, hypothyroidism, other (BPH) Past Surgical History: Other (Unable to obtain at this time) Social history: no significant social history Family history: other (Unable to obtain as the patient is confused, not pertinent to present admission) Medications and Allergies Allergies Allergy/AdvReac Type Severity Reaction Status Date / Time No Known Allergies Allergy Verified 05/05/21 08:17 Home Medications Medication Instructions Recorded Confirmed Last Taken Type Aspirin [Vazalore] 81 mg PO QDAY 05/05/21 05/05/21 Unknown History Chlorpheniramine (Nf) 8 mg PO Q12H 05/05/21 05/05/21 Unknown History [Chlor-Trimeton (Nf)] Enalapril Maleate [Vasotec] 20 mg PO BID 05/05/21 05/05/21 Unknown History Levothyroxine Sodium 200 mcg PO DAILY 05/05/21 05/05/21 Unknown History [Levothyroxine] Pravastatin [Pravachol] 20 mg PO QHS 05/05/21 05/05/21 Unknown History Tamsulosin [Flomax] 0.4 mg PO QDAY 05/05/21 05/05/21 Unknown History amLODIPine [Norvasc] 5 mg PO DAILY 05/05/21 05/05/21 Unknown History Active Meds: Active Medications Acetaminophen (Acetaminophen 325 Mg Tab) 650 mg PO Q4H PRN PRN Reason: Pain MILD(1-3)/Fever >100.5/DAUGHERTY Last Admin: 05/06/21 23:44 Dose: 650 mg Documented by: Amlodipine Besylate (Amlodipine 5 Mg Tab) 5 mg PO DAILY [facility] Last Admin: 05/07/21 12:38 Dose: Not Given Documented by: Aspirin (Aspirin Ec 81 Mg Tab) 81 mg PO QDAY [facility] Last Admin: 05/07/21 12:30 Dose: 81 mg Documented by: Atorvastatin Calcium (Atorvastatin 40 Mg Tab) 40 mg PO QHS [facility] Hydromorphone HCl (Hydromorphone 1 Mg/1 Ml Inj) 0.25 mg IV Q4H PRN PRN Reason: Pain, Moderate (4-6) Last Admin: 05/06/21 04:48 Dose: 0.25 mg Documented by: Ceftriaxone Sodium (Rocephin/Ns 2 Gm/100 Ml) 2 gm in 100 mls @ 200 mls/hr IV Q24H [facility]; Protocol Last Admin: 05/07/21 15:33 Dose: 200 mls/hr Documented by: Levothyroxine Sodium (Levothyroxine 100 Mcg Tab) 200 mcg PO DAILY@0600 [facility] Last Admin: 05/07/21 05:59 Dose: 200 mcg Documented by: Lisinopril (Lisinopril 20 Mg Tab) 20 mg PO BID [facility] Last Admin: 05/07/21 10:00 Dose: Not Given Documented by: Ondansetron HCl (Ondansetron 4 Mg/2 Ml Inj) 4 mg IV Q8H PRN PRN Reason: Nausea And Vomiting Sodium Chloride (Sodium Chloride 0.9% 10 Ml Flush Syringe) 10 ml IV BID [facility] Last Admin: 05/07/21 12:38 Dose: 10 ml Documented by: Sodium Chloride (Sodium Chloride 0.9% 10 Ml Flush Syringe) 10 ml IV PRN PRN PRN Reason: LINE FLUSH Last Admin: 05/07/21 12:37 Dose: 10 ml Documented by: Tamsulosin HCl (Tamsulosin 0.4 Mg Cap) 0.4 mg PO QDAY [facility] Review of Systems ROS unobtainable: due to mental status Physical Examination Last Vital Signs Temp 98.3 F 05/07/21 11:56 Pulse 90 05/07/21 12:38 Resp 20 05/07/21 11:56 BP 116/67 05/07/21 12:38 Pulse Ox 98 05/07/21 13:29 General appearance: no acute distress HEENT: Positive: PERRL Neck: Positive: trachea midline Cardiac: Positive: Reg Rate and Rhythm, S3 Lungs: Positive: Decreased Breath Sounds Neuro: Positive: Grossly Intact Abdomen: Positive: Soft, Active Bowel Sounds Skin: Negative: Rash, Suspicious Lesions Extremities: Present: upper extr. pulses, lower extr. pulses, edema Results 05/07/21 05:14 05/07/21 05:14 Cardiac Enzymes 05/07/21 Range/Units 05:14 AST 51 H (5-40) units/L Lipids 05/07/21 Range/Units 11:59 Triglycerides 97 (2-149) mg/dL Cholesterol 131 (50-199) mg/dL HDL Cholesterol 24 L (40-59) mg/dL Cholesterol/HDL Ratio 5.45 % CBC 05/07/21 Range/Units 05:14 WBC 18.1 H (4.5-11.0) K/mm3 RBC 3.17 L (3.65-5.03) M/mm3 Hgb 8.5 L (11.8-15.2) gm/dl Hct 26.9 L (35.5-45.6) % Plt Count 208 (140-440) K/mm3 Comprehensive Metabolic Panel 05/07/21 Range/Units 05:14 Sodium 140 (137-145) mmol/L Potassium 3.8 (3.6-5.0) mmol/L Chloride 103.6 (98-107) mmol/L Carbon Dioxide 30 (22-30) mmol/L BUN 26 H (9-20) mg/dL Creatinine 0.7 L (0.8-1.3) mg/dL Glucose 107 H (75-100) mg/dL Calcium 8.7 (8.4-10.2) mg/dL AST 51 H (5-40) units/L ALT 49 (7-56) units/L Alkaline Phosphatase 365 H (35-129) units/L Total Protein 5.5 L (6.3-8.2) g/dL Albumin 2.1 L (3.9-5) g/dL - Imaging and Cardiology Echo: pending, report reviewed EKG: report reviewed, image reviewed EKG interpretations - Telemetry EKG Rhythm: Sinus Rhythm - EKG Supraventricular dysrhythmia: atrial fibrillation Assessment and Plan Heart failure HTN * Previous Echo 04/04/2019- EF 50-55% grade 2 left ventricular diastolic dysfunction, dilated left atrium, dilated right atrium, mildly dilated ascending aorta, mildly dilated right ventricle, sigmoid septum moderate concentric left ventricular thickening, normal right ventricular systolic functionno significant stenotic or regurgitant valvular abnormalitiesnormally functioning bioprosthetic aortic valvenormal inferior vena cavano pericardial effusion * Lexiscan Stress 11/2017- negative for ischemia * Echo pending * Trop-minimally elevated. * Patient noted to be hypotensive this AM. Restart patients home medications when BP more stable Sepsis * Patient had leukocytosis and was febrile upon arrival to ED * Cultures positive for E.Coli * ID following H/o cholangiocarcinoma * S/p biliary drain placement. Patient is DNR/DNI and follows outpatient oncology CVA: * Neurology following. Patient see in conjunction with Dr. Mtz who agrees with this plan of care. Will continue to follow - Patient Problems (1) Acute encephalopathy Current Visit: Yes Status: Acute (2) Acute febrile illness Current Visit: Yes Status: Acute (3) Cancer of biliary duct or passage Current Visit: Yes Status: Acute (4) Do not resuscitate status Current Visit: Yes Status: Acute (5) Liver cancer Current Visit: Yes Status: Acute (6) Sepsis Current Visit: Yes Status: Acute Qualifiers: Sepsis type: sepsis due to unspecified organism Sepsis acute organ dysfunction status: without acute organ dysfunction Qualified Code(s): A41.9 - Sepsis, unspecified organism (7) History of hypertension Current Visit: Yes Status: Chronic
[2021-05-07] MEDS: TAMSULOSIN 0.4 MG CAP PO SCH (18:41)
[2021-05-08] MEDS: LEVOTHYROXINE 100 MCG TAB PO SCH (05:28)
[2021-05-08 05:42] LABS: Hematocrit 27.5 % (35.5-45.6); Mean Corpuscular HGB Conc 33 % (32-34); Mean Corpuscular Volume 86 fl (84-94); Platelet Count 189 K/mm3 (140-440); Red Blood Count 3.21 M/mm3 (3.65-5.03)
[2021-05-08 05:53] LABS: Red Cell Distribution Width 20.8 % (13.2-15.2)
[2021-05-08 06:02] LABS: Blood Urea Nitrogen 22 mg/dL (9-20); Calcium 8.7 mg/dL (8.4-10.2); Hemolysis Index 33
[2021-05-08 06:12] LABS: BUN/Creatinine Ratio 37
--- NOTE | 2021-05-08 07:53 | Progress Note ---
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 patient was noted to be febrile with a temperature of 103.5 and with marked leukocytosis and is being admitted for suspected sepsis. He is awake and alert and oriented to his name and age otherwise he is a poor historian. He says he is weak but denies any pain. He denies chest pain or shortness of breath. He is being admitted for suspected sepsis. Patient is DNR/DNI. He is vaccinated against COVID-19 05/06: Initial head CT some remarkable. There is enough doubt to fully evaluate CVA. Will obtain neurology consult. Also with recent diagnosis of CVA it may be imperative to get an MRI of the brain to rule out any metastatic spread. Aspiration precautions discussed with nursing staff. Otherwise continue current management for sepsis as noted below. 05/07: Imaging study of the brain concerning for possible Lacunar embolic CVA- Await Neuro eval, obtain, ECHO, Cards consult Discussed with surgeon about Abdominal CT findings, Abscess vs Hematoma, the latter is favors, nevertheless continue to monitor vitals, H/H and any fever. Repeat CTA/P if concern continues. PT/OT Plan discussed with patient and IDT 05/08: Patient seen and examined today, No surgical input per Surgery as hematoma was noted at [facility]. Patient with Ecoli Bactermia, will continue Ceftriaxone and Per ID can do PO levofloxacin 750 mg daily ending 05/15/2021 per Neurology " # CVA -MRI brain is remarkable for bilateral frontal embolic event -Blood C/s positive for E.Coli -SBEC can not be excluded -Metastesis can not be excluded -echo is with Ef#45-50% ,, dilated atrium right and left -started on ASA and lipitor -Repeat MRI brain with gd showed no metastsis but possible angioma - CTA brain and neck is remarkable for # cervical disc disease and osteopenia -symptomatic treatment , no mylopathy is noted on exam -treat underlying osteopenia " Discussed extensively with the daughter. She understands and all questions answered. (1) Sepsis secondary to E Coli Bactermia Current Visit: Yes Status: Acute Qualifiers: Sepsis type: sepsis due to unspecified organism Sepsis acute organ dysfunction status: without acute organ dysfunction Qualified Code(s): A41.9 - Sepsis, unspecified organism Plan to address problem: Started on sepsis pathway Blood cultures obtained Rocephin 2 g IV daily empiric ID consult Follow-up on blood culture results (2) Bilateral EMBOLIC CVA (3) History of hypertension Current Visit: Yes Status: Chronic Plan to address problem: His blood pressure is in the normal range Home medication list is not available at this time (4) Hyperglycemia Current Visit: Yes Status: Chronic Plan to address problem: check A1C Initiate insulin sliding scale coverage and Accu-Cheks before meals and at bedtime (5) 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 Current Visit: Yes Status: Acute Plan to address problem: History of biliary drain placement Outpatient follow-up with his oncologist He is DNR/DNI Patient's family is against any paracentesis at this time (6) Acute encephalopathy Current Visit: Yes Status: Acute Plan to address problem: Likely secondary to sepsis Lactic acid levels ordered Positive sepsis indicators are high-grade fever, tachycardia, altered mentation, leukocytosis (7) Acute febrile illness Current Visit: Yes Status: Acute Plan to address problem: Most likely secondary to suspected sepsis Rule out viral syndrome Covid test ordered Acetaminophen as needed Await blood culture results (8) Hypothyroidism Current Visit: Yes Status: Chronic Qualifiers: Hypothyroidism type: acquired Qualified Code(s): E03.9 - Hypothyroidism, unspecified Plan to address problem: Patient's home medication list is not available Discussed with RN in the ED (9)Do not resuscitate status Current Visit: Yes Status: Acute History Interval history: Patient seen and examined this morning remains on nasal cannula. Speech is much improved, states he has not ambulated in a few days Hospitalist Physical - Physical exam Narrative exam: General appearance: Present: no acute distress, well-nourished, - EENT Eyes: Present: PERRL, EOM intact ENT: hearing intact, clear oral mucosa - Neck Neck: Present: supple, normal ROM. Absent: masses or JVD - Respiratory Respiratory effort: normal Respiratory: bilateral: CTA, diminished, negative: rales, rhonchi - Cardiovascular Rhythm: regular - Extremities Extremity abnormal: edema (Bilateral lower extremity edema with stasis skin changes,) - Abdominal General gastrointestinal: Present: soft, distended, normal bowel sounds Male genitourinary: Present: deferred - Rectal Rectal Exam: deferred - Integumentary Integumentary: Present: clear - Musculoskeletal Musculoskeletal: moving ALL EXT - Neurologic Neurologic: moves all extremities - Constitutional Vitals: Temp Pulse Resp BP Pulse Ox 97.9 F 69 19 125/52 95 05/08/21 05:13 05/08/21 05:13 05/08/21 05:13 05/08/21 05:13 05/08/21 05:13 General appearance: Present: no acute distress, well-nourished HEART Score - HEART Score Troponin: Troponin T 0.024 ng/mL (0.00-0.029) 05/05/21 08:17 Results - Labs CBC & Chem 7: 05/08/21 05:14 05/08/21 05:14 Labs: Laboratory Last Values WBC 9.6 K/mm3 (4.5-11.0) 05/08/21 05:14 RBC 3.21 M/mm3 (3.65-5.03) L 05/08/21 05:14 Hgb 9.0 gm/dl (11.8-15.2) L 05/08/21 05:14 Hct 27.5 % (35.5-45.6) L 05/08/21 05:14 MCV 86 fl (84-94) 05/08/21 05:14 MCH 28 pg (28-32) 05/08/21 05:14 MCHC 33 % (32-34) 05/08/21 05:14 RDW 20.8 % (13.2-15.2) H 05/08/21 05:14 Plt Count 189 K/mm3 (140-440) 05/08/21 05:14 Add Manual Diff Complete 05/05/21 08:17 Total Counted 100 05/05/21 08:17 Seg Neutrophils % [place] 05/05/21 08:17 Seg Neuts % (Manual) 98.0 % (40.0-70.0) H 05/05/21 08:17 Monocytes % (Manual) 2.0 % (0.0-7.3) 05/05/21 08:17 Nucleated RBC % Not Reportable 05/05/21 08:17 Seg Neutrophils # Man 25.5 K/mm3 (1.8-7.7) H 05/05/21 08:17 Band Neutrophils # 0.0 K/mm3 05/05/21 08:17 Lymphocytes # (Manual) 0.0 K/mm3 (1.2-5.4) L 05/05/21 08:17 Abs React Lymphs (Man) 0.0 K/mm3 05/05/21 08:17 Monocytes # (Manual) 0.5 K/mm3 (0.0-0.8) 05/05/21 08:17 Eosinophils # (Manual) 0.0 K/mm3 (0.0-0.4) 05/05/21 08:17 Basophils # (Manual) 0.0 K/mm3 (0.0-0.1) 05/05/21 08:17 Metamyelocytes # 0.0 K/mm3 05/05/21 08:17 Myelocytes # 0.0 K/mm3 05/05/21 08:17 Promyelocytes # 0.0 K/mm3 05/05/21 08:17 Blast Cells # 0.0 K/mm3 05/05/21 08:17 WBC Morphology Not Reportable 05/05/21 08:17 WBC Morphology TNR 05/05/21 08:17 Hypersegmented Neuts Not Reportable 05/05/21 08:17 Hyposegmented Neuts Not Reportable 05/05/21 08:17 Hypogranular Neuts Not Reportable 05/05/21 08:17 Smudge Cells Not Reportable 05/05/21 08:17 Toxic Granulation Not Reportable 05/05/21 08:17 Toxic Vacuolation Not Reportable 05/05/21 08:17 Dohle Bodies Not Reportable 05/05/21 08:17 Pelger-Huet Anomaly Not Reportable 05/05/21 08:17 Ryan Rods Not Reportable 05/05/21 08:17 Platelet Estimate Consistent w auto 05/05/21 08:17 Clumped Platelets Not Reportable 05/05/21 08:17 Plt Clumps, EDTA Not Reportable 05/05/21 08:17 Large Platelets Not Reportable 05/05/21 08:17 Giant Platelets Not Reportable 05/05/21 08:17 Platelet Satelliting Not Reportable 05/05/21 08:17 Plt Morphology Comment Not Reportable 05/05/21 08:17 RBC Morphology Not Reportable 05/05/21 08:17 Dimorphic RBCs Not Reportable 05/05/21 08:17 Polychromasia Not Reportable 05/05/21 08:17 Hypochromasia Few 05/05/21 08:17 Poikilocytosis Not Reportable 05/05/21 08:17 Anisocytosis Not Reportable 05/05/21 08:17 Microcytosis Not Reportable 05/05/21 08:17 Macrocytosis Not Reportable 05/05/21 08:17 Spherocytes Not Reportable 05/05/21 08:17 Pappenheimer Bodies Not Reportable 05/05/21 08:17 Sickle Cells Not Reportable 05/05/21 08:17 Target Cells Few 05/05/21 08:17 Tear Drop Cells Few 05/05/21 08:17 Ovalocytes Not Reportable 05/05/21 08:17 Helmet Cells Not Reportable 05/05/21 08:17 [place] Bodies Not Reportable 05/05/21 08:17 [place] Rings Not Reportable 05/05/21 08:17 Mendoza Cells Not Reportable 05/05/21 08:17 Bite Cells Not Reportable 05/05/21 08:17 Crenated Cell Not Reportable 05/05/21 08:17 Elliptocytes Not Reportable 05/05/21 08:17 Acanthocytes (Spur) Not Reportable 05/05/21 08:17 Rouleaux Not Reportable 05/05/21 08:17 Hemoglobin C Crystals Not Reportable 05/05/21 08:17 Schistocytes Not Reportable 05/05/21 08:17 Malaria parasites Not Reportable 05/05/21 08:17 Stephen Bodies Not Reportable 05/05/21 08:17 Hem Pathologist Commnt No 05/05/21 08:17 PT 14.7 Sec. (12.2-14.9) 05/05/21 08:17 INR 1.09 (0.87-1.13) 05/05/21 08:17 APTT 38.7 Sec. (24.2-36.6) H 05/05/21 08:17 Sodium 141 mmol/L (137-145) 05/08/21 05:14 Potassium 4.2 mmol/L (3.6-5.0) 05/08/21 05:14 Chloride 102.5 mmol/L (98-107) 05/08/21 05:14 Carbon Dioxide 33 mmol/L (22-30) H 05/08/21 05:14 Anion Gap 10 mmol/L 05/08/21 05:14 BUN 22 mg/dL (9-20) H 05/08/21 05:14 Creatinine 0.6 mg/dL (0.8-1.3) L 05/08/21 05:14 Estimated GFR > 60 ml/min 05/08/21 05:14 BUN/Creatinine Ratio 37 % 05/08/21 05:14 Glucose 108 mg/dL (75-100) H 05/08/21 05:14 Lactic Acid 1.30 mmol/L (0.7-2.0) 05/05/21 08:17 Calcium 8.7 mg/dL (8.4-10.2) 05/08/21 05:14 Magnesium 1.80 mg/dL (1.7-2.3) 05/05/21 08:17 Total Bilirubin 1.70 mg/dL (0.1-1.2) H 05/07/21 05:14 AST 51 units/L (5-40) H 05/07/21 05:14 ALT 49 units/L (7-56) 05/07/21 05:14 Alkaline Phosphatase 365 units/L (35-129) H 05/07/21 05:14 Ammonia 27.0 umol/L (25-60) 05/05/21 08:17 Total Creatine Kinase 99 units/L (55-170) 05/05/21 08:17 Total Creatine Kinase 99 units/L (55-170) 05/05/21 08:17 Troponin T 0.024 ng/mL (0.00-0.029) 05/05/21 08:17 NT-Pro-B Natriuret Pep 3157 pg/mL (0-900) H 05/05/21 08:17 Total Protein 5.5 g/dL (6.3-8.2) L 05/07/21 05:14 Albumin 2.1 g/dL (3.9-5) L 05/07/21 05:14 Albumin/Globulin Ratio 0.6 % 05/07/21 05:14 Triglycerides 97 mg/dL (2-149) 05/07/21 11:59 Cholesterol 131 mg/dL (50-199) 05/07/21 11:59 LDL Cholesterol Direct 80 mg/dL (50-130) 05/07/21 11:59 HDL Cholesterol 24 mg/dL (40-59) L 05/07/21 11:59 Cholesterol/HDL Ratio 5.45 % 05/07/21 11:59 TSH 2.310 mlU/mL (0.270-4.200) 05/05/21 08:17 Urine Color Catrina (Yellow) 05/06/21 17:30 Urine Turbidity Clear (Clear) 05/06/21 17:30 Urine pH 5.0 (5.0-7.0) 05/06/21 17:30 Ur Specific [place] 1.015 (1.003-1.030) 05/06/21 17:30 Urine Protein 30 mg/dl mg/dL (Negative) 05/06/21 17:30 Urine Glucose (UA) Neg mg/dL (Negative) 05/06/21 17:30 Urine Ketones Neg mg/dL (Negative) 05/06/21 17:30 Urine Blood Neg (Negative) 05/06/21 17:30 Urine Nitrite Neg (Negative) 05/06/21 17:30 Urine Bilirubin Neg (Negative) 05/06/21 17:30 Urine Urobilinogen 4.0 mg/dL (<2.0) 05/06/21 17:30 Ur Leukocyte Esterase Neg (Negative) 05/06/21 17:30 Urine WBC (Auto) 13.0 /HPF (0.0-6.0) H 05/06/21 17:30 Urine RBC (Auto) 7.0 /HPF (0.0-6.0) 05/06/21 17:30 U Epithel Cells (Auto) 1.0 /HPF (0-13.0) 05/06/21 17:30 Urine Mucus 2+ /HPF 05/06/21 17:30 Urine Yeast (Budding) 2+ /HPF 05/06/21 17:30 Salicylates < 0.3 mg/dL (2.8-20.0) L 05/05/21 08:17 Acetaminophen 5.0 ug/mL (10.0-30.0) L 05/05/21 08:17 Plasma/Serum Alcohol < 0.01 % (0-0.07) 05/05/21 08:17 Coronavirus (PCR) Negative (Negative) 05/05/21 Unknown Blood Type AB POSITIVE 05/05/21 08:11 Antibody Screen Negative 05/05/21 08:11 Microbiology: Microbiology 05/05/21 08:17 Peripheral/Venous Blood Culture - Preliminary Escherichia Coli 05/05/21 08:17 Peripheral/Venous Blood Culture - Preliminary Escherichia Coli 05/05/21 Unknown Urine,Catheterized - Straight Catheter Urine Culture - Final Coulter/IV: Voiding Method Urinal Active Medications - Current Medications Current Medications: Generic Name Dose Route Start Last Admin Trade Name Freq PRN Reason Stop Dose Admin Acetaminophen 650 mg 05/05/21 11:30 05/06/21 23:44 Acetaminophen 325 Mg Tab PO 650 mg Q4H PRN Administration Pain MILD(1-3)/Fever >100.5/DAUGHERTY Amlodipine Besylate 5 mg 05/06/21 16:00 05/07/21 12:38 Amlodipine 5 Mg Tab PO Not Given DAILY [facility] Aspirin 81 mg 05/07/21 10:00 05/07/21 12:30 Aspirin Ec 81 Mg Tab PO 81 mg QDAY [facility] Administration Atorvastatin Calcium 40 mg 05/07/21 22:00 05/07/21 22:22 Atorvastatin 40 Mg Tab PO 40 mg QHS [facility] Administration Hydromorphone HCl 0.25 mg 05/05/21 11:30 05/06/21 04:48 Hydromorphone 1 Mg/1 Ml Inj IV 0.25 mg Q4H PRN Administration Pain, Moderate (4-6) Ceftriaxone Sodium 2 gm in 100 mls @ 200 mls/hr 05/06/21 09:00 05/07/21 22:26 Rocephin/Ns 2 Gm/100 Ml IV Infused Q24H [facility] Infusion Protocol Levothyroxine Sodium 200 mcg 05/07/21 06:00 05/08/21 05:28 Levothyroxine 100 Mcg Tab PO 200 mcg DAILY@0600 [facility] Administration Lisinopril 20 mg 05/06/21 22:00 05/07/21 22:22 Lisinopril 20 Mg Tab PO 20 mg BID [facility] Administration Ondansetron HCl 4 mg 05/05/21 11:30 Ondansetron 4 Mg/2 Ml Inj IV Q8H PRN Nausea And Vomiting Sodium Chloride 10 ml 05/05/21 12:00 05/07/21 22:22 Sodium Chloride 0.9% 10 Ml Flush Syringe IV 10 ml BID [facility] Administration Sodium Chloride 10 ml 05/05/21 11:30 05/07/21 12:37 Sodium Chloride 0.9% 10 Ml Flush Syringe IV 10 ml PRN PRN Administration LINE FLUSH Tamsulosin HCl 0.4 mg 05/07/21 16:00 05/07/21 18:41 Tamsulosin 0.4 Mg Cap PO 0.4 mg QDAY [facility] Administration Nutrition/Malnutrition Assess - Dietary Evaluation Nutrition/Malnutrition Findings: Nutrition Notes Start: 05/07/21 16:06 Freq: Status: Active Protocol: Document 05/07/21 16:06 EB (Rec: 05/07/21 16:19 [id number]) Nutrition Notes Need for Assessment generated from: MST Initial or Follow up Assessment Current Diagnosis Sepsis Other Pertinent Diagnosis Acute encephalopathy, SIRS, Hypothyroidism, Liver cancer, biliary cancer Current Diet Cardiac diet Labs/Tests BUN 26 Creatinine 0.7 Pertinent Medications Reviewed Height 5 ft 8.11 in Weight 99.7 kg [place] Body Weight (kg) 70.30 BMI 33.3 Weight Status Obese Subjective/Other Information RD consulted for MST; [place]: 3. Pt recently had biliary drain surgically placed. Per RN, pt skin intact and reason for MST was for this drain placement. Drain is kept clean and dry. Per RN, pt is consuming 100% of each meal currently. Percent of energy/protein needs met: 112%/86% Burn Absent Trauma Absent Current % PO Good (75-100%) Minimum of two criteria No physical signs of malnutrition #1 Nutrition Diagnosis No nutrition diagnosis at this time As Evidenced by Signs and Symptoms Pt meeting 100% of xena and protein needs via PO intake. Is patient on ventilator? No Is Patient Ambulatory and/or Out of Bed No REE-([facility]-confined to bed) 1985.052 Kcal/Kg value to use for calculation 20 Approximate Energy Requirements Using 1994 kcal/Kg Calculation Used for Recommendations [facility] Additional Notes Protein needs: 79-99 g/day Fluid Needs: 1 mL/kcal Nutrition Intervention Change Diet Order: Continue current diet Goal #1 Continue to meet energy and protein needs. Anticipated Discharge Needs: Unable to determine at this time Revisit per MD consult or patient Sign Off request:
[2021-05-08 09:29] LABS: Albumin 2.1 g/dL (3.9-5)
[2021-05-08] MEDS: cefTRIAXone/NS 2 GM/100 ML 2 GM/100 ML BAG IV SCH (10:03)
[2021-05-08] MEDS: amLODIPine 5 MG TAB PO SCH (10:03)
[2021-05-08] MEDS: LISINOPRIL 20 MG TAB PO SCH ×2 (10:04→21:33)
[2021-05-08] MEDS: ASPIRIN EC 81 MG TAB PO SCH (10:04)
[2021-05-08] MEDS: TAMSULOSIN 0.4 MG CAP PO SCH (10:04)
--- NOTE | 2021-05-08 12:50 | Progress Note ---
Assessment and Plan Assessment and Plan this is 85 ys old male presented with fever and confusion he is with Hx of cancer billiary duct - Patient Problems # Sepsis Started on sepsis pathway Blood cultures obtained Rocephin 2 g IV daily empiric ID consult Follow-up on blood culture results # CVA -MRI brain is remarkable for bilateral frontal embolic event -Blood C/s positive for E.Coli -SBEC can not be excluded -Metastesis can not be excluded -echo is with Ef#45-50% ,, dilated atrium right and left -started on ASA and lipitor -Repeat MRI brain with gd showed no metastsis but possible angioma - CTA brain and neck is remarkable for # cervical disc disease and osteopenia -symptomatic treatment , no mylopathy is noted on exam -treat underlying osteopenia . # Hypothyroidism Patient's home medication list is not available Discussed with RN in the ED # History of hypertension His blood pressure is in the normal range Home medication list is not available at this time # Hyperglycemia check A1C Initiate insulin sliding scale coverage and Accu-Cheks before meals and at b edtime # Cancer of biliary duct or passage History of biliary drain placement Outpatient follow-up with his oncologist He is DNR/DNI Patient's family is against any paracentesis at this time # Acute encephalopathy Likely secondary to sepsis Lactic acid levels ordered Positive sepsis indicators are high-grade fever, tachycardia, altered mentation, leukocytosis # Acute febrile illness Most likely secondary to suspected sepsis Rule out viral syndrome Covid test ordered Acetaminophen as needed Await blood culture results # Do not resuscitate status Current Visit: Yes Status: Acute PLAN 1- treat underlying infection 2- Consider SUN ? thrombus 3- baker head ? AF 4- Pt therapy , maintain ASA and lipitor 5- Vit D supplement will follow Subjective Date of service: 05/08/21 Principal diagnosis: weakness and leukocytosis Interval history: doing well more alert interactive less weakness alert and oriented Objective - Vital Sign Vital Signs - 12hr 05/08/21 05/08/21 05/08/21 05:13 08:32 10:03 Temperature 97.9 F 97.3 F L Pulse Rate 69 95 H 95 H Respiratory 19 18 Rate Blood Pressure 125/52 122/62 122/62 O2 Sat by Pulse 95 97 Oximetry - General Apperance Constitutional: comfortable - EENT EENT: PERRL, mucous membranes moist - Respiratory Respiratory: chest non-tender, lungs clear, rhonchi - Cardiovascular Cardiovascular: regular rate, normal S1, normal S2 Extremities: no peripheral edema bilat, no clubbing, cyanosis - Gastrointestinal Gastrointestinal: normoactive bowel sounds - Integumentary Integumentary: normal - Neurologic Cranial nerve examination: PERRL, EOMI, intact Speech examination: intact Detailed motor examination: grossly full strength in, other (with residual left side weakness , reflexes are suppressed , gait not done) - Laboratory Findings CBC and BMP: 05/08/21 05:14 05/08/21 05:14 Abnormal Lab Findings: Abnormal Labs 05/05/21 05/05/21 05/05/21 08:17 08:17 08:17 WBC 26.0 H RBC 3.44 L Hgb 9.4 L Hct 29.4 L MCH 27 L RDW 20.4 H Seg Neuts % (Manual) 98.0 H Seg Neutrophils # Man 25.5 H Lymphocytes # (Manual) 0.0 L APTT 38.7 H Carbon Dioxide BUN 23 H Creatinine Glucose 142 H Calcium Total Bilirubin 2.60 H Direct Bilirubin AST 66 H ALT 63 H Alkaline Phosphatase 490 H NT-Pro-B Natriuret Pep Total Protein Albumin 3.0 L HDL Cholesterol Urine WBC (Auto) Salicylates Acetaminophen 05/05/21 05/05/21 05/05/21 08:17 08:17 08:17 WBC RBC Hgb Hct MCH RDW Seg Neuts % (Manual) Seg Neutrophils # Man Lymphocytes # (Manual) APTT Carbon Dioxide BUN Creatinine Glucose Calcium Total Bilirubin Direct Bilirubin AST ALT Alkaline Phosphatase NT-Pro-B Natriuret Pep 3157 H Total Protein Albumin HDL Cholesterol Urine WBC (Auto) Salicylates < 0.3 L Acetaminophen 5.0 L 05/06/21 05/06/21 05/06/21 05:48 05:48 17:30 WBC 25.2 H RBC 3.35 L Hgb 9.1 L Hct 28.4 L MCH 27 L RDW 21.1 H Seg Neuts % (Manual) Seg Neutrophils # Man Lymphocytes # (Manual) APTT Carbon Dioxide BUN 23 H Creatinine Glucose 149 H Calcium 8.2 L Total Bilirubin 2.30 H Direct Bilirubin AST 58 H ALT 58 H Alkaline Phosphatase 459 H NT-Pro-B Natriuret Pep Total Protein 5.8 L Albumin 2.6 L HDL Cholesterol Urine WBC (Auto) 13.0 H Salicylates Acetaminophen 05/07/21 05/07/21 05/07/21 05:14 05:14 11:59 WBC 18.1 H RBC 3.17 L Hgb 8.5 L Hct 26.9 L MCH 27 L RDW 21.0 H Seg Neuts % (Manual) Seg Neutrophils # Man Lymphocytes # (Manual) APTT Carbon Dioxide BUN 26 H Creatinine 0.7 L Glucose 107 H Calcium Total Bilirubin 1.70 H Direct Bilirubin AST 51 H ALT Alkaline Phosphatase 365 H NT-Pro-B Natriuret Pep Total Protein 5.5 L Albumin 2.1 L HDL Cholesterol 24 L Urine WBC (Auto) Salicylates Acetaminophen 05/08/21 05/08/21 05/08/21 05:14 05:14 05:14 WBC RBC 3.21 L Hgb 9.0 L Hct 27.5 L MCH RDW 20.8 H Seg Neuts % (Manual) Seg Neutrophils # Man Lymphocytes # (Manual) APTT Carbon Dioxide 33 H BUN 22 H Creatinine 0.6 L Glucose 108 H Calcium Total Bilirubin 1.50 H Direct Bilirubin 1.0 H AST 45 H ALT Alkaline Phosphatase 367 H NT-Pro-B Natriuret Pep Total Protein 5.7 L Albumin 2.1 L HDL Cholesterol Urine WBC (Auto) Salicylates Acetaminophen
--- NOTE | 2021-05-08 12:52 | Event Note ---
Date: 05/08/21 Patient chart reviewed. Vital signs stable. White count has trended down to normal at 9.6. LFTs stable. CT scan from [facility] performed on May 01, 2021 -images reviewed along with radiology report. " Likely patent right internal/external biliary drain in satisfactory position with suspected small postprocedural right anterior hepatic subcapsular hematoma". Measures 5.6 x 1.3 cm 85 yo M with 1. sepsis 2. E coli bacteremia 3. cholangiocarcinoma - Dx 04/22/21. ?cholangitis 4. Hepatic fluid collection, likely hematoma Plan: Comparison of CT scan from 05/01 and 05/06 shows same subcapsular hematoma at the site of the biliary drain, unchanged in size. Hemoglobin is stable. No acute surgical intervention at this time. Will sign off
--- NOTE | 2021-05-08 14:13 | Progress Note ---
Assessment and Plan Heart failure HTN * Previous Echo 04/04/2019- EF 50-55% grade 2 left ventricular diastolic dysfunction, dilated left atrium, dilated right atrium, mildly dilated ascending aorta, mildly dilated right ventricle, sigmoid septum moderate concentric left ventricular thickening, normal right ventricular systolic functionno significant stenotic or regurgitant valvular abnormalitiesnormally functioning bioprosthetic aortic valvenormal inferior vena cavano pericardial effusion * Lexiscan Stress 11/2017- negative for ischemia * Echo 05/07/2021-EF 45 to 50% mild left ventricular hypertrophy, left ventricular diastolic function is indeterminate, right ventricle is moderately dilated, right ventricle is hypokinetic, left atrium is severely dilated, right atrium is mildly dilated, * Trop-minimally elevated. * Restarted patients home metoprolol 50mg PO BID, HCTZ12.5mg PO QD. Agree wtih ASA, Lipitor 40 qhs, amlodipine 5mg qd Sepsis * Patient had leukocytosis and was febrile upon arrival to ED * Cultures positive for E.Coli * ID following H/o cholangiocarcinoma * S/p biliary drain placement. Patient is DNR/DNI and follows outpatient oncology CVA: * MRI brain shows bilateral frontal embolic event * Neurology following. Patient see in conjunction with Dr. Mtz who agrees with this plan of care. Will continue to follow - Patient Problems (1) Acute encephalopathy Current Visit: Yes Status: Acute (2) Acute febrile illness Current Visit: Yes Status: Acute (3) Cancer of biliary duct or passage Current Visit: Yes Status: Acute (4) Do not resuscitate status Current Visit: Yes Status: Acute (5) Liver cancer Current Visit: Yes Status: Acute (6) Sepsis Current Visit: Yes Status: Acute Qualifiers: Sepsis type: sepsis due to unspecified organism Sepsis acute organ dysfunction status: without acute organ dysfunction Qualified Code(s): A41.9 - Sepsis, unspecified organism (7) History of hypertension Current Visit: Yes Status: Chronic Subjective Date of service: 05/08/21 Principal diagnosis: Sepsis, AMS, CVA? Interval history: Patient sitting in bed. Slightly confused Patient is not on monitor Objective Vital Signs Temp Pulse Resp BP Pulse Ox 05/08/21 12:47 97.8 F 67 18 116/53 94 05/08/21 10:03 95 H 122/62 05/08/21 08:32 97.3 F L 95 H 18 122/62 97 05/08/21 05:13 97.9 F 69 19 125/52 95 05/07/21 23:35 98.3 F 70 18 130/64 97 05/07/21 22:00 20 95 05/07/21 19:55 98.1 F 87 19 104/54 95 05/07/21 16:00 98.2 F 80 24 130/68 99 - Physical Examination General: No Apparent Distress HEENT: Positive: PERRL Neck: Positive: trachea midline Cardiac: Positive: irregularly irregular Lungs: Positive: Decreased Breath Sounds Neuro: Positive: Grossly Intact Abdomen: Positive: Soft, Active Bowel Sounds Skin: Negative: Rash, Suspicious Lesions Extremities: Present: upper extr. pulses, lower extr. pulses, edema - Labs and Meds Cardiac Enzymes 05/08/21 Range/Units 05:14 AST 45 H (5-40) units/L CBC 05/08/21 Range/Units 05:14 WBC 9.6 (4.5-11.0) K/mm3 RBC 3.21 L (3.65-5.03) M/mm3 Hgb 9.0 L (11.8-15.2) gm/dl Hct 27.5 L (35.5-45.6) % Plt Count 189 (140-440) K/mm3 Comprehensive Metabolic Panel 05/08/21 05/08/21 Range/Units 05:14 05:14 Sodium 141 (137-145) mmol/L Potassium 4.2 (3.6-5.0) mmol/L Chloride 102.5 (98-107) mmol/L Carbon Dioxide 33 H (22-30) mmol/L BUN 22 H (9-20) mg/dL Creatinine 0.6 L (0.8-1.3) mg/dL Glucose 108 H (75-100) mg/dL Calcium 8.7 (8.4-10.2) mg/dL Direct Bilirubin 1.0 H (0-0.2) mg/dL Indirect Bilirubin 0.5 mg/dL AST 45 H (5-40) units/L ALT 46 (7-56) units/L Alkaline Phosphatase 367 H (35-129) units/L Total Protein 5.7 L (6.3-8.2) g/dL Albumin 2.1 L (3.9-5) g/dL - Imaging and Cardiology EKG: report reviewed, image reviewed Echo: pending, report reviewed
--- NOTE | 2021-05-08 14:49 | Progress Note ---
Assessment and Plan Cultures: 05/05/2021 blood culture: E. 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 UA with mild pyuria, culture without growth. CT abdomen pelvis showed small perihepatic/subcapsular fluid collection adjacent to right lobe of liver suggestive of possible abscess. 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 Evaluated by general surgery, suspicious of hematoma. #History of cholangiocarcinoma: Status post biliary drain placement. He is DNR/DNI, follows with oncology as outpatient. #Bilateral lacunar infarction/CVA: Noted on MRI. Neurology following. #Acute encephalopathy: Likely from sepsis. Also CVA. TTE showed no obvious vegetations, left atrium and right atrium are dilated. Neurology following. E. coli endocarditis is very rare Recs: -continue Ceftriaxone while inpatient, upon discharge, can do PO levofloxacin 750 mg daily ending 05/15/2021 -overall, guarded prognosis Geraldine Lau MD, FACP [facility] O: [phone] F: [phone] Subjective Date of service: 05/08/21 Principal diagnosis: Sepsis, AMS, CVA? Interval history: No fever. WBC down to 9.6. Denies any abdominal pain. Objective - Exam Narrative Exam: Physical Exam: Constitutional: Awake, alert Head, Ears, Nose: Normocephalic, atraumatic. External ears, nose normal Eyes: Conjunctivae/corneas clear. No icterus. No ptosis. Neck: Supple, no meningeal signs Cardiovascular: S1, S2 + Respiratory: Good air entry, clear to auscultation bilaterally GI: Soft, non-tender; bowel sounds normal. No peritoneal signs Musculoskeletal: No pedal edema, no cyanosis. Skin: No rash or abscess Hem/Lymphatic: No palpable cervical or supraclavicular nodes. No lymphangitis Psych: no agitation Neurological: Awake, alert - Constitutional Vitals: Vital Signs Temp Pulse Resp BP Pulse Ox 97.8 F 67 18 116/53 94 05/08/21 12:47 05/08/21 12:47 05/08/21 12:47 05/08/21 12:47 05/08/21 12:47 Temperature -Last 24 Hours Temperature 97.8 F Temperature 97.3 F Temperature 97.9 F Temperature 98.3 F Temperature 98.1 F Temperature 98.2 F - Labs CBC & Chem 7: 05/08/21 05:14 05/08/21 05:14 Labs: Abnormal lab results 05/08/21 05/08/21 05/08/21 Range/Units 05:14 05:14 05:14 RBC 3.21 L (3.65-5.03) M/mm3 Hgb 9.0 L (11.8-15.2) gm/dl Hct 27.5 L (35.5-45.6) % RDW 20.8 H (13.2-15.2) % Carbon Dioxide 33 H (22-30) mmol/L BUN 22 H (9-20) mg/dL Creatinine 0.6 L (0.8-1.3) mg/dL Glucose 108 H (75-100) mg/dL Total Bilirubin 1.50 H (0.1-1.2) mg/dL Direct Bilirubin 1.0 H (0-0.2) mg/dL AST 45 H (5-40) units/L Alkaline Phosphatase 367 H (35-129) units/L Total Protein 5.7 L (6.3-8.2) g/dL Albumin 2.1 L (3.9-5) g/dL
[2021-05-08] MEDS: METOPROLOL TARTRATE 25 MG TAB PO SCH (21:33)
[2021-05-09] MEDS: LEVOTHYROXINE 100 MCG TAB PO SCH (05:48)
[2021-05-09 06:39] LABS: Hematocrit 28.5 % (35.5-45.6); Hemoglobin 9.3 gm/dl (11.8-15.2); Mean Corpuscular HGB Conc 33 % (32-34); Mean Corpuscular Volume 85 fl (84-94); Platelet Count 196 K/mm3 (140-440); Red Blood Count 3.34 M/mm3 (3.65-5.03)
[2021-05-09 06:55] LABS: Blood Urea Nitrogen 19 mg/dL (9-20); Calcium 8.2 mg/dL (8.4-10.2); Hemolysis Index 0
[2021-05-09 07:03] LABS: BUN/Creatinine Ratio 32
[2021-05-09] MEDS: CHLORPHENIRAMINE 4 MG PO SCH (07:51)
[2021-05-09] MEDS: cefTRIAXone/NS 2 GM/100 ML 2 GM/100 ML BAG IV SCH (09:04)
[2021-05-09] MEDS: ASPIRIN EC 81 MG TAB PO SCH (09:18)
[2021-05-09] MEDS: METOPROLOL TARTRATE 25 MG TAB PO SCH (09:18)
[2021-05-09] MEDS: amLODIPine 5 MG TAB PO SCH (09:18)
[2021-05-09] MEDS: LISINOPRIL 20 MG TAB PO SCH (09:18)
[2021-05-09] MEDS: TAMSULOSIN 0.4 MG CAP PO SCH (09:19)
[2021-05-09] MEDS ORDERED: hydroCHLOROthiazide 12.5 MG CAP PO SCH (10:00)
--- NOTE | 2021-05-09 10:51 | Progress Note ---
Assessment and Plan No evidence of valvular vegetation on TTE. Occurrence of infective endocarditis secondary to E coli is highly unlikely. Given pt's age and comorbidities, along with DNR/DNI status, conservative cardiac mgmt is recommend. The risks of SUN in this case would likely outweigh the benefits. If there is concern for brain metastases (per Neuro documentation), anticoagulation would increase pt's risk of ICH. Recommend continuing current abx therapies as outlined per ID recs. Continue bASA & statin. Of note, recent 30-day event monitor additionally revealed no evidence of AF. Pt seen in conjunction with Dr. Mtz, who agrees with the assessment and plan of care. - Patient Problems (1) CVA (cerebral vascular accident) Current Visit: Yes Status: Acute (2) Sepsis Current Visit: Yes Status: Acute Qualifiers: Sepsis type: Escherichia coli (3) S/P aortic valve replacement with bioprosthetic valve Current Visit: Yes Status: Acute (4) Cancer of biliary duct or passage Current Visit: Yes Status: Chronic (5) Bladder cancer Current Visit: Yes Status: Chronic (6) HTN (hypertension) Current Visit: Yes Status: Chronic (7) Hypothyroidism Current Visit: Yes Status: Chronic Qualifiers: Hypothyroidism type: acquired Qualified Code(s): E03.9 - Hypothyroidism, unspecified Subjective Date of service: 05/09/21 Principal diagnosis: CVA Interval history: Resting comfortably in bed. Drowsy. Denies any complaints. No tele data available for review. Objective Last Vital Signs Temp 98.3 F 05/09/21 16:00 Pulse 74 05/09/21 16:00 Resp 20 05/09/21 16:00 BP 128/70 05/09/21 16:00 Pulse Ox 92 05/09/21 16:00 - Physical Examination General: No Apparent Distress HEENT: Positive: EOMI, Normocephaly Neck: Positive: neck supple, trachea midline Cardiac: Positive: S1/S2 Lungs: Positive: clear to auscultation Neuro: Positive: Grossly Intact Abdomen: Positive: Soft. Negative: Tender Skin: Negative: Rash Musculoskeletal: No Pain Extremities: Present: lower extr. pulses, edema - Labs and Meds CBC 05/09/21 Range/Units 05:31 WBC 9.3 (4.5-11.0) K/mm3 RBC 3.34 L (3.65-5.03) M/mm3 Hgb 9.3 L (11.8-15.2) gm/dl Hct 28.5 L (35.5-45.6) % Plt Count 196 (140-440) K/mm3 Comprehensive Metabolic Panel 05/09/21 Range/Units 05:31 Sodium 140 (137-145) mmol/L Potassium 4.1 (3.6-5.0) mmol/L Chloride 102.3 (98-107) mmol/L Carbon Dioxide 31 H (22-30) mmol/L BUN 19 (9-20) mg/dL Creatinine 0.6 L (0.8-1.3) mg/dL Glucose 105 H (75-100) mg/dL Calcium 8.2 L (8.4-10.2) mg/dL - Imaging and Cardiology EKG: report reviewed, image reviewed Echo: report reviewed (05/07/2021 - EF 45-50%, RV mild-mod dilated, RV hypokinetic, LA severely dilated, negative bubble study) - EKG Sinus rhythms and dysrhythmias: sinus rhythm Supraventricular dysrhythmia: atrial premature complexe Ventricular dysrhythmias: ventricular premature com Chamber hypertrophy or enlargement: left ventricular hypertro
--- NOTE | 2021-05-09 11:59 | Discharge Summary ---
Providers - Providers Date of Admission: 05/05/21 09:35 Attending physician: LOUIS WHITTAKER MD 05/05/21 11:17 Consult to Case Management [CONS] Routine Services Needed at Discharge: Policy Director Notified:: case management Consult to Physician [CONS] Routine Comment: Consulting Provider: OPAL URBAN Physician Instructions: Reason For Exam: sepsis 05/06/21 15:04 Consult to Physician [CONS] Routine Comment: Consulting Provider: MELECIO WOOD Physician Instructions: Reason For Exam: TIA 05/06/21 15:07 Occupational Therapy Evaluate and Treat [CONS] Routine Comment: Reason For Exam: DEBILITY Physical Therapy Evaluation and Treat [CONS] Routine Comment: Reason For Exam: DEBILITY 05/07/21 08:11 Consult to Physician [CONS] Routine Comment: Consulting Provider: VITALIY TIMMONS Physician Instructions: Reason For Exam: CVA- POSSIBLE EMBOLIC. chf 05/07/21 10:52 Consult to Physician [CONS] Routine Comment: Consulting Provider: JADE CAT Physician Instructions: Reason For Exam: abdominal abscess Primary care physician: [employer]ST[employer] Hospitalization Reason for admission: sepsis Condition: Stable Hospital course: 85-year-old male with history of biliary duct cancer status post biliary drain placement, who lives with his daughter was noted to be weak and confused unable to stand on his feet and transferred to the ED. patient was noted to be febrile with a temperature of 103.5 and with marked leukocytosis and is being admitted for suspected sepsis. He is awake and alert and oriented to his name and age otherwise he is a poor historian. He says he is weak but denies any pain. He denies chest pain or shortness of breath. He is being admitted for suspected sepsis. Patient is DNR/DNI. He is vaccinated against COVID-19 05/06: Initial head CT some remarkable. There is enough doubt to fully evaluate CVA. Will obtain neurology consult. Also with recent diagnosis of CVA it may be imperative to get an MRI of the brain to rule out any metastatic spread. Aspiration precautions discussed with nursing staff. Otherwise continue current management for sepsis as noted below. 05/07: Imaging study of the brain concerning for possible Lacunar embolic CVA- Await Neuro eval, obtain, ECHO, Cards consult Discussed with surgeon about Abdominal CT findings, Abscess vs Hematoma, the latter is favors, nevertheless continue to monitor vitals, H/H and any fever. Repeat CTA/P if concern continues. PT/OT Plan discussed with patient and IDT 05/08: Patient seen and examined today, No surgical input per Surgery as hematoma was noted at [facility]. Patient with Ecoli Bactermia, will continue Ceftriaxone and Per ID can do PO levofloxacin 750 mg daily ending 05/15/2021 per Neurology " # CVA -MRI brain is remarkable for bilateral frontal embolic event -Blood C/s positive for E.Coli -SBEC can not be excluded -Metastesis can not be excluded -echo is with Ef#45-50% ,, dilated atrium right and left -started on ASA and lipitor -Repeat MRI brain with gd showed no metastsis but possible angioma - CTA brain and neck is remarkable for # cervical disc disease and osteopenia -symptomatic treatment , no mylopathy is noted on exam -treat underlying osteopenia " Discussed extensively with the daughter. She understands and all questions an swered. 05/09:Patient for discharge, Per cardiology and also agreed to by Neurology "No evidence of valvular vegetation on TTE. Occurrence of viejas valve endocarditis secondary to E coli is highly unlikely. Given pt's age and comorbidities, along with DNR/DNI status, conservative cardiac mgmt is recommend. The risks of SUN in this case would likely outweigh the benefits. If there is concern for brain metastases (per Neuro documentation), anticoagulation would increase pt's risk of ICH. Recommend continuing current abx therapies as outlined per ID recs. Continue bASA & statin. End of life discussions had with the patients daughter- 35 mins (1) Sepsis secondary to E Coli Bactermia Current Visit: Yes Status: Acute Qualifiers: Sepsis type: sepsis due to unspecified organism Sepsis acute organ dysfunction status: without acute organ dysfunction Qualified Code(s): A41.9 - Sepsis, unspecified organism Plan to address problem: Started on sepsis pathway Blood cultures obtained Rocephin 2 g IV daily empiric ID consult Follow-up on blood culture results (2) Bilateral EMBOLIC CVA (3) History of hypertension Current Visit: Yes Status: Chronic Plan to address problem: His blood pressure is in the normal range Home medication list is not available at this time (4) Hyperglycemia Current Visit: Yes Status: Chronic Plan to address problem: check A1C Initiate insulin sliding scale coverage and Accu-Cheks before meals and at bedtime (5) 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 Current Visit: Yes Status: Acute Plan to address problem: History of biliary drain placement Outpatient follow-up with his oncologist He is DNR/DNI Patient's family is against any paracentesis at this time (6) Acute encephalopathy Current Visit: Yes Status: Acute Plan to address problem: Likely secondary to sepsis Lactic acid levels ordered Positive sepsis indicators are high-grade fever, tachycardia, altered mentation, leukocytosis (7) Acute febrile illness Current Visit: Yes Status: Acute Plan to address problem: Most likely secondary to suspected sepsis Rule out viral syndrome Covid test ordered Acetaminophen as needed Await blood culture results (8) Hypothyroidism Current Visit: Yes Status: Chronic Qualifiers: Hypothyroidism type: acquired Qualified Code(s): E03.9 - Hypothyroidism, unspecified Plan to address problem: Patient's home medication list is not available Discussed with RN in the ED (9)Do not resuscitate status Current Visit: Yes Status: Acute Disposition: 50 HOSPICE/HOME Final Discharge Diagnosis (Prints w/discharge instructions): embolic CVA Time spent for discharge: 35 mins Core Measure Documentation - Palliative Care Palliative Care/ Comfort Measures: Not Applicable - Core Measures Any of the following diagnoses?: stroke - Stroke Discharge Requirements Statin for LDL = or >70 mg/dl on DC: Yes Anticoag for atrial fib/atrial flutter: Not Applicable Antithrombotic for ischemic stroke: Yes Exam - Physical Exam Narrative exam: General appearance: Present: no acute distress, well-nourished, - EENT Eyes: Present: PERRL, EOM intact ENT: hearing intact, clear oral mucosa - Neck Neck: Present: supple, normal ROM. Absent: masses or JVD - Respiratory Respiratory effort: normal Respiratory: bilateral: CTA, diminished, negative: rales, rhonchi - Cardiovascular Rhythm: regular - Extremities Extremity abnormal: edema (Bilateral lower extremity edema with stasis skin changes,) - Abdominal General gastrointestinal: Present: soft, distended, normal bowel sounds Male genitourinary: Present: deferred - Rectal Rectal Exam: deferred - Integumentary Integumentary: Present: clear - Musculoskeletal Musculoskeletal: moving ALL EXT - Neurologic Neurologic: moves all extremities - Constitutional Vitals: Temp Pulse Resp BP Pulse Ox 98.3 F 64 18 144/83 93 05/09/21 03:56 05/09/21 09:18 05/09/21 03:56 05/09/21 09:18 05/09/21 09:02 Plan Activity: advance as tolerated, fall precautions Diet: low salt Special Instructions: record daily weights, record daily BP diary, physical therapy, occupational therapy, home health RN Durable Medical Equipment Needed Upon Discharge: Walker-Rolling, Wheelchair, Bedside Commode Plan of Treatment: Please follow up with Primary oncologist Follow up with: PRIMARY MD COLLINS [Primary Care Provider] - 3-5 Days VITALIY TIMMONS MD [Staff Physician] - 7 Days AYSHA MENENDEZ MD [Staff Physician] - 7 Days Prescriptions: AtorvaSTATin [Lipitor] 40 mg PO QHS #30 tablet Aspirin EC [Halfprin EC] 81 mg PO QDAY #30 tablet hydroCHLOROthiazide [HCTZ] 12.5 mg PO QDAY #30 capsule levoFLOXacin [Levaquin] 750 mg PO QDAY #7 tablet Metoprolol [Lopressor TAB] 25 mg PO BID #60 tablet oxyCODONE /ACETAMINOPHEN [Percocet 5/325] 1 tab PO Q6HR PRN #14 tablet PRN Reason: Pain
--- NOTE | 2021-05-09 12:11 | Progress Note ---
Assessment and Plan Assessment and Plan this is 85 ys old male presented with fever and confusion he is with Hx of cancer billiary duct - Patient Problems # Sepsis Started on sepsis pathway Blood cultures obtained Rocephin 2 g IV daily empiric ID consult Follow-up on blood culture results # CVA -MRI brain is remarkable for bilateral frontal embolic event -Blood C/s positive for E.Coli -SBEC can not be excluded -Metastesis can not be excluded -echo is with Ef#45-50% ,, dilated atrium right and left -started on ASA and lipitor -Repeat MRI brain with gd showed no metastsis but possible angioma - CTA brain and neck is remarkable for # cervical disc disease and osteopenia -symptomatic treatment , no mylopathy is noted on exam -treat underlying osteopenia . # Hypothyroidism Patient's home medication list is not available Discussed with RN in the ED # History of hypertension His blood pressure is in the normal range Home medication list is not available at this time # Hyperglycemia check A1C Initiate insulin sliding scale coverage and Accu-Cheks before meals and at b edtime # Cancer of biliary duct or passage History of biliary drain placement Outpatient follow-up with his oncologist He is DNR/DNI Patient's family is against any paracentesis at this time # Acute encephalopathy Likely secondary to sepsis Lactic acid levels ordered Positive sepsis indicators are high-grade fever, tachycardia, altered mentation, leukocytosis # Acute febrile illness Most likely secondary to suspected sepsis Rule out viral syndrome Covid test ordered Acetaminophen as needed Await blood culture results # Do not resuscitate status Current Visit: Yes Status: Acute PLAN 1- treat underlying infection 2- Consider SUN ? thrombus++ Evaluated by cardiology don,t feel is possible due to terminal status and contra indication to AC 3- nurse monitoring ? AF 4- Pt therapy , maintain ASA and lipitor 5- Vit D supplement will sign off Subjective Date of service: 05/09/21 Principal diagnosis: CVA, CA Interval history: doing well more alert interactive less weakness alert and oriented evaluated by cardiology don,t feel SUN is feasible due to terminal status and contra indication to AC Objective - Vital Sign Vital Signs - 12hr 05/09/21 05/09/21 05/09/21 03:56 09:02 09:17 Temperature 98.3 F 97.6 F Pulse Rate 70 67 Respiratory 18 18 Rate Blood Pressure 150/75 144/83 O2 Sat by Pulse 93 93 95 Oximetry 05/09/21 05/09/21 09:18 11:35 Temperature 97.8 F Pulse Rate 64 79 Respiratory 20 Rate Blood Pressure 144/83 114/56 O2 Sat by Pulse 93 Oximetry - General Apperance Constitutional: comfortable - EENT EENT: PERRL, mucous membranes moist - Respiratory Respiratory: chest non-tender, lungs clear, rhonchi - Cardiovascular Cardiovascular: regular rate, normal S1, normal S2 Extremities: no peripheral edema bilat, no clubbing, cyanosis - Gastrointestinal Gastrointestinal: normoactive bowel sounds - Integumentary Integumentary: normal - Neurologic Cranial nerve examination: PERRL, EOMI, intact Speech examination: intact Detailed motor examination: grossly full strength in - Laboratory Findings CBC and BMP: 05/09/21 05:31 05/09/21 05:31 Abnormal Lab Findings: Abnormal Labs 05/05/21 05/05/21 05/05/21 08:17 08:17 08:17 WBC 26.0 H RBC 3.44 L Hgb 9.4 L Hct 29.4 L MCH 27 L RDW 20.4 H Seg Neuts % (Manual) 98.0 H Seg Neutrophils # Man 25.5 H Lymphocytes # (Manual) 0.0 L APTT 38.7 H Carbon Dioxide BUN 23 H Creatinine Glucose 142 H Calcium Total Bilirubin 2.60 H Direct Bilirubin AST 66 H ALT 63 H Alkaline Phosphatase 490 H NT-Pro-B Natriuret Pep Total Protein Albumin 3.0 L HDL Cholesterol Urine WBC (Auto) Salicylates Acetaminophen 05/05/21 05/05/21 05/05/21 08:17 08:17 08:17 WBC RBC Hgb Hct MCH RDW Seg Neuts % (Manual) Seg Neutrophils # Man Lymphocytes # (Manual) APTT Carbon Dioxide BUN Creatinine Glucose Calcium Total Bilirubin Direct Bilirubin AST ALT Alkaline Phosphatase NT-Pro-B Natriuret Pep 3157 H Total Protein Albumin HDL Cholesterol Urine WBC (Auto) Salicylates < 0.3 L Acetaminophen 5.0 L 05/06/21 05/06/21 05/06/21 05:48 05:48 17:30 WBC 25.2 H RBC 3.35 L Hgb 9.1 L Hct 28.4 L MCH 27 L RDW 21.1 H Seg Neuts % (Manual) Seg Neutrophils # Man Lymphocytes # (Manual) APTT Carbon Dioxide BUN 23 H Creatinine Glucose 149 H Calcium 8.2 L Total Bilirubin 2.30 H Direct Bilirubin AST 58 H ALT 58 H Alkaline Phosphatase 459 H NT-Pro-B Natriuret Pep Total Protein 5.8 L Albumin 2.6 L HDL Cholesterol Urine WBC (Auto) 13.0 H Salicylates Acetaminophen 05/07/21 05/07/21 05/07/21 05:14 05:14 11:59 WBC 18.1 H RBC 3.17 L Hgb 8.5 L Hct 26.9 L MCH 27 L RDW 21.0 H Seg Neuts % (Manual) Seg Neutrophils # Man Lymphocytes # (Manual) APTT Carbon Dioxide BUN 26 H Creatinine 0.7 L Glucose 107 H Calcium Total Bilirubin 1.70 H Direct Bilirubin AST 51 H ALT Alkaline Phosphatase 365 H NT-Pro-B Natriuret Pep Total Protein 5.5 L Albumin 2.1 L HDL Cholesterol 24 L Urine WBC (Auto) Salicylates Acetaminophen 05/08/21 05/08/21 05/08/21 05:14 05:14 05:14 WBC RBC 3.21 L Hgb 9.0 L Hct 27.5 L MCH RDW 20.8 H Seg Neuts % (Manual) Seg Neutrophils # Man Lymphocytes # (Manual) APTT Carbon Dioxide 33 H BUN 22 H Creatinine 0.6 L Glucose 108 H Calcium Total Bilirubin 1.50 H Direct Bilirubin 1.0 H AST 45 H ALT Alkaline Phosphatase 367 H NT-Pro-B Natriuret Pep Total Protein 5.7 L Albumin 2.1 L HDL Cholesterol Urine WBC (Auto) Salicylates Acetaminophen 05/09/21 05/09/21 05:31 05:31 WBC RBC 3.34 L Hgb 9.3 L Hct 28.5 L MCH RDW 21.0 H Seg Neuts % (Manual) Seg Neutrophils # Man Lymphocytes # (Manual) APTT Carbon Dioxide 31 H BUN Creatinine 0.6 L Glucose 105 H Calcium 8.2 L Total Bilirubin Direct Bilirubin AST ALT Alkaline Phosphatase NT-Pro-B Natriuret Pep Total Protein Albumin HDL Cholesterol Urine WBC (Auto) Salicylates Acetaminophen
--- NOTE | 2021-05-09 14:09 | Progress Note ---
Assessment and Plan Cultures: 05/05/2021 blood culture: E. 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 UA with mild pyuria, culture without growth. CT abdomen pelvis showed small perihepatic/subcapsular fluid collection adjacent to right lobe of liver suggestive of possible abscess. 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 Evaluated by general surgery, suspicious of hematoma. #History of cholangiocarcinoma: Status post biliary drain placement. He is DNR/DNI, follows with oncology as outpatient. #Bilateral lacunar infarction/CVA: Noted on MRI. Neurology following. #Acute encephalopathy: Likely from sepsis. Also CVA. TTE showed no obvious vegetations, left atrium and right atrium are dilated. Neurology following. E. coli endocarditis is very rare Recs: -continue Ceftriaxone while inpatient, upon discharge, PO levofloxacin 750 mg daily ending 05/15/2021 -overall, guarded prognosis ID will sign off. Please call with questions. Geraldine Lau MD, FACP [facility] ([facility] O: [phone] F: [phone] Subjective Date of service: 05/09/21 Principal diagnosis: CVA, CA Interval history: No fever. Denies any abdominal pain. No rash. Objective - Exam Narrative Exam: Physical Exam: Constitutional: Awake, alert Head, Ears, Nose: Normocephalic, atraumatic. External ears, nose normal Eyes: Conjunctivae/corneas clear. No icterus. No ptosis. Neck: Supple, no meningeal signs Cardiovascular: S1, S2 + Respiratory: Good air entry, clear to auscultation bilaterally GI: Soft, non-tender; bowel sounds normal. No peritoneal signs Musculoskeletal: No pedal edema, no cyanosis. Skin: No rash or abscess Hem/Lymphatic: No palpable cervical or supraclavicular nodes. No lymphangitis Psych: no agitation Neurological: Awake, alert - Constitutional Vitals: Vital Signs Temp Pulse Resp BP Pulse Ox 97.8 F 79 20 114/56 93 05/09/21 11:35 05/09/21 11:35 05/09/21 11:35 05/09/21 11:35 05/09/21 11:35 Temperature -Last 24 Hours Temperature 97.8 F Temperature 97.6 F Temperature 98.3 F Temperature 98.3 F Temperature 98.8 F Temperature 97.8 F - Labs CBC & Chem 7: 05/09/21 05:31 05/09/21 05:31 Labs: Abnormal lab results 05/09/21 05/09/21 Range/Units 05:31 05:31 RBC 3.34 L (3.65-5.03) M/mm3 Hgb 9.3 L (11.8-15.2) gm/dl Hct 28.5 L (35.5-45.6) % RDW 21.0 H (13.2-15.2) % Carbon Dioxide 31 H (22-30) mmol/L Creatinine 0.6 L (0.8-1.3) mg/dL Glucose 105 H (75-100) mg/dL Calcium 8.2 L (8.4-10.2) mg/dL
[2021-05-09 16:01] VITALS: BP 128/70
== END 2021-05-09 19:00 | disposition hospice, home (50) | DRG 871 ==
LOC: SUATTDRO 06:45 → ED 06:45 → 3A 09:35 → 4A 05-06 20:37
PROVIDERS: ADMIT Internal Medicine; ATTEND Internal Medicine
DX: A41.51 Sepsis due to Escherichia coli [E. coli] (principal); I63.9 Cerebral infarction, unspecified; G93.40 Encephalopathy, unspecified; C24.0 Malignant neoplasm of extrahepatic bile duct; K83.09 Other cholangitis; C22.8 Malignant neoplasm of liver, primary, unspecified as to type; R73.9 Hyperglycemia, unspecified; E03.9 Hypothyroidism, unspecified; Z20.822 Contact with and (suspected) exposure to COVID-19; Z66 Do not resuscitate; M85.80 Other specified disorders of bone density and structure, unspecified site; M50.80 Other cervical disc disorders, unspecified cervical region; I10 Essential (primary) hypertension; N40.0 Benign prostatic hyperplasia without lower urinary tract symptoms; R53.81 Other malaise; Z79.82 Long term (current) use of aspirin; Z85.89 Personal history of malignant neoplasm of other organs and systems; Z79.899 Other long term (current) drug therapy
CPT/HCPCS: 36415; 70450; 70496; 70498; 70551; 70552; 71045; 72125; 72170; 74177; 80048; 80053; 80061; 80076; 80320; 81001; 82140; 82550; 83735; 83880; 84443; 84484; 85007; 85025; 85027; 85610; 85730; 86850; 86900; 86901; 87040; 87076; 87086; 87186; 93005; 93306; 94760; G0378; A9270-GY; A9575; G0480; J0696; J1170; J1940; Q9967; U0003